=== PATIENT | male | born 1975 | race Hispanic/Latino ===

== ENCOUNTER 2018-01-08 07:29 | Outpatient (CLI) | payer BC | END 2018-01-08 07:30 | disposition home or self-care (01) | LOC: CP 07:29 | PROVIDERS: ATTEND Family Medicine | DX: R06.2 Wheezing (principal) | CPT/HCPCS: 94010; 94727 ==

== ENCOUNTER 2018-04-09 12:29 | Emergency (ER) | payer BC ==
[2018-04-09 13:03] LABS: #Basophils 0.1 thou/uL (0.0-0.2); #Eosinphils 0.2 thou/uL (0.0-0.7); #Lymphocytes 1.7 thou/uL (1.20-3.40); #Monocytes 0.5 thou/uL (0.11-0.59); %Basophils 0.9 % (0.0-1.0); %Eosinophils 2.6 % (0.0-10.0); %Lymphocytes 26.6 % (21.0-51.0); %Monocytes 7.8 % (0.0-10.0); %Neutrophils 62.1 % (42.0-75.0); Hemoglobin 15.9 g/dL (14.0-18.0); Mean Corpuscular Hemoglobin 32.4 pg (27.0-31.0); Mean Corpuscular Volume 95.1 fL (78.0-98.0); Mean Platelet Volume 8.1 fL (7.4-10.4); Platelet Count 137 thou/uL (130-400); RBC Distribution Width 12.7 % (11.5-14.5); White Blood Cell (WBC) Count 6.5 thou/uL (4.8-10.8)
[2018-04-09 13:25] LABS: ALT (SGPT) 16 U/L (8-55); AST (SGOT) 17 U/L (5-34); Albumin 4.4 g/dL (3.5-5.0); Alkaline Phosphatase 123 U/L (40-150); Anion Gap 23 mmol/L (10-20); BUN (Urea Nitrogen) 39 mg/dL (8.9-20.6); Bilirubin, Total 1.1 mg/dL (0.2-1.2); Calc. Creatinine Clearance 0 mL/min (70-130); Calcium 9.4 mg/dL (7.8-10.44); Carbon Dioxide 27 mmol/L (22-29); Chloride 95 mmol/L (98-107); Estimated GFR-MDRD 4; Globulin 4.2 g/dL (2.4-3.5); Glucose 90 mg/dL (70-105); Potassium 4.6 mmol/L (3.5-5.1); Protein, Total 8.6 g/dL (6.0-8.3); Sodium 140 mmol/L (136-145)
[2018-04-09 13:31] LABS: CKMB 0.3 ng/mL (0-6.6); Troponin I Less than 0.010 ng/mL (< 0.028)
--- NOTE | 2018-04-09 13:52 | CT ---
CT BRAIN WITHOUT CONTRAST: Date: 04/09/18 HISTORY: Hypotension, headache. Patient on dialysis. FINDINGS: Comparison made with exam of 06/06/10. Changes of left frontal craniotomy are again seen. No evidence of infarct, hemorrhage, midline shift, or abnormal extra-axial fluid collections are seen. The ventricular size is normal and the basilar c isterns are patent. No acute calvarial abnormalities are noted. Old fractures of the lamina papyracea bilaterally are again noted. IMPRESSION: No CT evidence of acute intracranial process. POS: [facility]
--- NOTE | 2018-04-09 14:01 | RAD ---
CHEST 1 VIEW: Date: 04/09/18 COMPARISON: 02/04/17. HISTORY: Dialysis patient. Hypotension. FINDINGS: Normal cardiac silhouette. Pulmonary vessels and hilum are normal. Costophrenic angles are clear. No mass. No consolidation. No pneumothorax or osseous abnormalities. IMPRESSION: No acute cardiopulmonary process. POS: [facility]
[2018-04-09] MEDS ORDERED: Meclizine HCl 25 MG TAB ONE (14:37)
[2018-04-09] MEDS ORDERED: Acetaminophen 500 MG TAB ONE (16:27)
--- NOTE | 2018-04-12 17:32 | EKG ---
Test Reason : Blood Pressure : / mmHG Vent. Rate : 077 BPM Atrial Rate : 077 BPM P-R Int : 134 ms QRS Dur : 080 ms QT Int : 368 ms P-R-T Axes : 046 001 015 degrees QTc Int : 416 ms Normal sinus rhythm Normal ECG Confirmed by MARIA LUISA MARTINEZ M.D. ([id number]), tape editor MIREYA SORENSEN ([id number]) on 04/12/2018 5:32:16 PM Referred By: Confirmed By:MARIA LUISA MARTINEZ M.D.
== END 2018-04-09 16:37 | disposition home or self-care (01) ==
LOC: ERS 12:29
DX: R42 Dizziness and giddiness (principal); N40.1 Benign prostatic hyperplasia with lower urinary tract symptoms; I10 Essential (primary) hypertension; Z99.2 Dependence on renal dialysis; Z79.899 Other long term (current) drug therapy
CPT/HCPCS: 70450; 71045; 80053; 82553; 84484; 85025; 93005; 96360; 96361

== ENCOUNTER 2018-12-17 09:49 | Inpatient (IN) | payer BC ==
[2018-12-17 10:27] LABS: Hemoglobin 15.8 g/dL (14.0-18.0); Mean Corpuscular HGB CONC 32.6 g/dL (32.0-36.0); Mean Corpuscular Hemoglobin 30.3 pg (27.0-31.0); Mean Platelet Volume 8.3 fL (7.4-10.4); Platelet Count 140 thou/uL (130-400); RBC Distribution Width 12.9 % (11.5-14.5); Red Blood Cell (RBC) Count 5.23 mill/uL (4.70-6.10); White Blood Cell (WBC) Count 14.1 thou/uL (4.8-10.8)
[2018-12-17 10:45] LABS: ALT (SGPT) 11 U/L (8-55); AST (SGOT) 10 U/L (5-34); Albumin 4.4 g/dL (3.5-5.0); Alkaline Phosphatase 95 U/L (40-150); Anion Gap 23 mmol/L (10-20); BUN (Urea Nitrogen) 43 mg/dL (8.9-20.6); Bilirubin, Total 2.5 mg/dL (0.2-1.2); Calc. Creatinine Clearance 0 mL/min (70-130); Calcium 10.2 mg/dL (7.8-10.44); Carbon Dioxide 26 mmol/L (22-29); Chloride 92 mmol/L (98-107); Estimated GFR-MDRD 4; Globulin 3.9 g/dL (2.4-3.5); Glucose 78 mg/dL (70-105); Lipase 18 U/L (8-78); Potassium 4.9 mmol/L (3.5-5.1); Protein, Total 8.3 g/dL (6.0-8.3); Sodium 136 mmol/L (136-145)
[2018-12-17 10:53] LABS: Band 3 % (5-11); Eosinophils 1 % (0-10); Lymphocytes 10 % (21-51); MDiff Complete? YES; Monocytes 4 % (0-10); Neutrophil 82 % (42-75); Platelet Morphology Comment Appears Adequate; RBC Morphology Normal
--- NOTE | 2018-12-17 11:32 | CT ---
CT ABDOMEN AND PELVIS WITH IV CONTRAST: HISTORY: Lower abdomen pain. COMPARISON: 11/28/2015 FINDINGS: Small hiatal hernia. Calcifications associated with each kidney include dystrophic cortical calcific ations and small, nonobstructing urinary tract calcifications. Polycystic kidneys is again demonstra woo. A short-segment focus of circumferential wall thickening involving the sigmoid colon with significant stranding in the adjacent fat. A small diverticulum is present at this level. Very few other diver ticula, however. No free fluid or free air. IMPRESSION: 1. Short segment sigmoid colon inflammation, as detailed above. Favored to be noncomplicated divert iculitis. Please consider endoscopic followup, after medical treatment, to exclude other underlying cause. 2. Small, nonobstructing bilateral renal calculi. 3. Small hiatal hernia. POS: [facility]
[2018-12-17] MEDS ORDERED: Morphine 4 MG/ML VIAL ONE (11:45)
[2018-12-17] MEDS ORDERED: Ondansetron PF 4 MG/2 ML Vial ONE (11:45)
[2018-12-17] MEDS ORDERED: cefTRIAXone\\ROCEPHIN 1 GM VIAL ONE (12:23)
[2018-12-17] MEDS ORDERED: Acetaminophen 650 MG Suppository PR PRN (13:41)
[2018-12-17] MEDS ORDERED: Ondansetron PF 4 MG/2 ML Vial IVP PRN (13:41)
[2018-12-17] MEDS ORDERED: Senokot S 8.6-50 MG TAB PO PRN (13:41)
[2018-12-17] MEDS ORDERED: Acetaminophen 325 MG TAB PO PRN (13:41)
[2018-12-17] MEDS ORDERED: Bisacodyl 5 MG TAB PO PRN (13:41)
[2018-12-17] MEDS ORDERED: HYDROcodone/Acetaminophen 5/325 mg Tablet PO PRN ×2 (13:41)
[2018-12-17] MEDS ORDERED: Diabetic Tussin 200 MG/10 ML UDCUP PO PRN (13:42)
[2018-12-17] MEDS ORDERED: Nitroglycerin 0.4 MG TAB (25 Tab Bottle) SL PRN (13:42)
[2018-12-17] MEDS ORDERED: Sodium Chloride 0.65% Nasal 44 ML BOT EA NARE PRN (13:42)
[2018-12-17] MEDS ORDERED: Benzonatate 100 MG CAP PO PRN (13:42)
[2018-12-17] MEDS ORDERED: hydrALAZINE 20 MG/ML VIAL SLOW IVP PRN (13:42)
[2018-12-17] MEDS ORDERED: cloNIDine 0.1 MG TAB PO PRN (13:42)
[2018-12-17] MEDS ORDERED: metroNIDAZOLE 500 MG/100 ML BAG ONE (13:52)
[2018-12-17] MEDS: metroNIDAZOLE 500 MG in Premix Bag 1 BAG IVPB SCH ×3 (13:58→20:19)
--- NOTE | 2018-12-17 14:20 | HP ---
PRIMARY CARE PHYSICIAN: Katt Ca MD PRIMARY WOOD VENEER TAPER: Shemar Samuels MD CHIEF COMPLAINT: Abdominal pain. HISTORY OF PRESENTING ILLNESS: Mr. Morejon is a 43-year-old male, who presented to the ER with above-mentioned complaints. History is mainly obtained by the patient himself. Electronic medical records have been reviewed. Case has been discussed with admitting ER physician, Dr. Mayberry. Mr. Morejon reports that he normally dialyzes Saturday, , and Saturdays, and is compliant with his dialysis. Dr. Zaragoza is his geospatial systems integrator. He started to have this abdominal pain, initially vague, since Saturday that was about 4 days ago. Then, it became severe and started to localize in the right lower quadrant. It is associated with nausea, vomiting, and low-grade fever since yesterday morning. He also reports some loose stools. He denies any blood in his stools. He denies any recent travel. He denies any new foods. He has not eaten out recently. He denies any chest pain or shortness of breath. Upon presentation to the emergency room, he was hemodynamically stable, but had a low-grade fever at 100.8. Blood pressure was 115/66. He has slight tachycardia with a heart rate of 103. His initial workup included blood work, which showed leukocytosis with WBCs of 14.1 with 82% neutrophils and 3% bands. BUN 43, creatinine 13.34. Lactic acid was normal. He underwent a CT scan of the abdomen and pelvis in the ER today with IV contrast, which showed short-segment sigmoid colon inflammation likely noncomplicated diverticulitis. He received Rocephin in the emergency room along with some antiemetics and pain medications and is now being admitted to medical service for acute diverticulitis. PAST MEDICAL HISTORY: 1. End-stage renal disease, on hemodialysis Saturday, , and Saturday. The patient is compliant. 2. History of BPH, which is questionable, but listed in the EMR. 3. Hypertension. PAST SURGICAL HISTORY: 1. Dialysis shunt of right arm. 2. Surgical history of prostatectomy. 3. History of some sort of head surgery. SOCIAL HISTORY: He is and lives with his family. No history of drug, tobacco, or alcohol abuse. FAMILY HISTORY: Diabetes in his aunts and uncles, but he denies any history of heart attack or stroke running in his family. No cancers in his family. ALLERGIES: PENICILLIN. HOME MEDICATIONS: As listed in the emergency room record, 1. Sensipar 60 mg. 2. Vitamin D3 daily. 3. Fosrenol daily. These further need to be corroborated as the list is seemingly incomplete. REVIEW OF SYSTEMS: A 14-point review of system is done and it is negative except for those mentioned in the history and physical. LABORATORY EXAMINATION: CBC as stated above in the HPI shows leukocytosis with left shift. Serum chemistry showed chloride 92, anion gap 23, BUN 43, creatinine 13.34. Lipase is normal. Lactic acid is normal. Total bilirubin 2.5. CT scan of the abdomen and pelvis with IV contrast showed sigmoid diverticulitis. A 12-lead EKG by my review shows normal sinus rhythm at 96 beats per minute without any ectopy. ST segments and T-waves are normal. PHYSICAL EXAMINATION: VITAL SIGNS: Upon presentation, blood pressure 115/66, respirations 18, temperature 100.8, saturating 95% on room air, pulse of 103. GENERAL: No acute distress. Lying comfortably in bed. Awake, alert, and oriented x3. Family is at bedside. HEENT: Mucous membrane is slightly dry. No oropharyngeal exudate or erythema. Head is normocephalic and atraumatic. Pupils are equal and reactive to light and accommodation. Extraocular movement intact. NECK: Supple without any lymphadenopathy, JVD, or bruit. CHEST: Clear to auscultation without any wheezing, rales, or rhonchi. Rate, rhythm is regular without any murmurs, rubs, or gallops. ABDOMEN: Slightly distended and tender to palpation in the suprapubic region as well as right lower quadrant. Bowel sounds are heard easily. No rebound, guarding, or rigidity. EXTREMITIES: Dialysis fistula to the right upper arm with normal thrill. No lower extremity swelling, edema, or erythema. NEUROLOGICAL: Nonfocal. SKIN: Free of any rashes or bruises. Feels warm and dry to touch. PSYCHIATRIC: Normal affect. IMPRESSION AND PLAN: 1. Acute diverticulitis. The patient will be admitted to the hospital and will be treated with broad-spectrum IV antibiotics for GI sources, namely metronidazole and Rocephin. Blood cultures have been obtained in the emergency room and we will follow the results. At this time, the patient does not appear to be septic. Pain medications will be initiated on a p.r.n. basis and we will keep the patient n.p.o. for now and start him on gentle IV fluid hydration. He also has gotten some IV contrast and will undergo dialysis tomorrow. 2. Abdominal pain. This is secondary to acute diverticulitis. Pain control, IV antibiotic and IV fluids as above. 3. End-stage renal disease. We will consult his geospatial systems integrator, Dr. Zaragoza, for maintenance hemodialysis in the hospital. Restart his renal medications once confirmed. Recheck renal function in the morning along with electrolytes. 4. History of hypertension. The patient's home medications have not been reconciled. We will restart his home medications once confirmed and meanwhile use p.r.n. antihypertensives. 5. Deep venous thrombosis and gastrointestinal prophylaxis will be added. 6. Disposition: Mr. Morejon is currently being admitted to the hospital with acute sigmoid diverticulitis. He is hemodynamically stable and will be admitted to medical floor. Estimated length of stay at this time is at least 2 to 3 midnights. Job ID: [id number]
[2018-12-17] MEDS ORDERED: ISOVUE-370 76%-LOCM 1 ML ONE (14:39)
[2018-12-17 17:25] VITALS: BMI 30.7
[2018-12-17] MEDS: Morphine 4 MG/ML VIAL SLOW IVP PRN (18:16)
[2018-12-17] MEDS: Dextrose 5 %-0.45 % NaCl 1,000 ML IV SCH (18:26)
[2018-12-17] MEDS: Heparin 5,000 UNITS/ML VIAL SC SCH (20:28)
[2018-12-17] MEDS ORDERED: Prevnar 13-Val Conj/PF 0.5 ML SYRINGE IM ONE (21:00)
[2018-12-17] MEDS ORDERED: Famotidine/PF 20 mg/2ml Vial SLOW IVP SCH (21:00)
[2018-12-18] MEDS: Morphine 4 MG/ML VIAL SLOW IVP PRN ×3 (01:08→14:53)
[2018-12-18] MEDS: metroNIDAZOLE 500 MG in Premix Bag 1 BAG IVPB SCH ×3 (05:00→21:33)
[2018-12-18] MEDS: Dextrose 5 %-0.45 % NaCl 1,000 ML IV SCH ×2 (05:00→17:03)
[2018-12-18 06:08] LABS: Anion Gap 20 mmol/L (10-20); BUN (Urea Nitrogen) 57 mg/dL (8.9-20.6); Calc. Creatinine Clearance 8 mL/min (70-130); Calcium 9.2 mg/dL (7.8-10.44); Carbon Dioxide 25 mmol/L (22-29); Chloride 94 mmol/L (98-107); Estimated GFR-MDRD 4; Glucose 88 mg/dL (70-105); Potassium 4.8 mmol/L (3.5-5.1); Sodium 134 mmol/L (136-145)
[2018-12-18 06:43] LABS: #Basophils 0.1 thou/uL (0.0-0.2); #Eosinphils 0.1 thou/uL (0.0-0.7); #Monocytes 0.7 thou/uL (0.11-0.59); #Neutrophils 7.1 thou/uL (1.40-6.50); %Basophils 0.6 % (0.0-1.0); %Eosinophils 1.5 % (0.0-10.0); %Lymphocytes 10.8 % (21.0-51.0); %Monocytes 7.9 % (0.0-10.0); %Neutrophils 79.2 % (42.0-75.0); Hemoglobin 14.1 g/dL (14.0-18.0); Mean Corpuscular HGB CONC 32.6 g/dL (32.0-36.0); Mean Corpuscular Hemoglobin 30.3 pg (27.0-31.0); Mean Corpuscular Volume 92.9 fL (78.0-98.0); Mean Platelet Volume 8.7 fL (7.4-10.4); Platelet Count 117 thou/uL (130-400); Platelet Morphology Comment Appears Decreased; RBC Distribution Width 12.8 % (11.5-14.5); RBC Morphology Normal; Red Blood Cell (RBC) Count 4.64 mill/uL (4.70-6.10)
[2018-12-18] MEDS: Heparin 5,000 UNITS/ML VIAL SC SCH ×2 (08:22→21:36)
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
[2018-12-18] MEDS: cefTRIAXone\\ROCEPHIN 1 GM in Sodium Chloride 0.9% 100 ML IVPB SCH (14:47)
[2018-12-18] MEDS: Famotidine 20 MG TAB PO SCH (21:33)
--- NOTE | 2018-12-18 22:10 | PDOC.PN ---
- Subjective Encounter Start Date: 12/18/18 Encounter Start Time: 14:45 Patient seen and examined for Sepsis/Diverticulitis. Abd pain improving. No N/ V. No other complaints. No overnight events - Objective MAR Reviewed: Yes Vital Signs & Weight: Vital Signs (12 hours) Temp Pulse Resp BP BP Pulse Ox 12/18/18 21:52 96 12/18/18 21:07 98.4 F 80 18 108/65 95 12/18/18 15:01 99.2 F 109 H 18 102/69 96 Weight Weight 185 lb I&O: 12/17/18 12/18/18 12/19/18 06:59 06:59 06:59 Intake Total 825 Balance 825 Result Diagrams: 12/19/18 06:33 12/19/18 06:33 Radiology Reviewed by me: Yes (CT Abd - Diverticulitis) Phys Exam - Physical Examination Constitutional: NAD Respiratory: no wheezing, no rhonchi Cardiovascular: RRR, no rub Gastrointestinal: soft, non-tender, positive bowel sounds Musculoskeletal: no edema Neurological: moves all 4 limbs Dx/Plan - Plan DVT proph w/SCDs IMPRESSION: Sepsis due to acute Diverticulitis HTN ESRD on HD Obesity BMI 30.8 BPH Abn LFTs B/L nonobstructing renal calculi Hiatal hernia PLAN: Cont Ceftriaxone/Flagyl Start clear liqd diet Reduce IVF to KVO Dialysis per Nephrology AM labs Review of Systems - Medications/Allergies Allergies/Adverse Reactions: Allergies Allergy/AdvReac Type Severity Reaction Status Date / Time Penicillins Allergy Severe ITCHING, Verified 04/16/17 16:47 HIVES Medications: Current Medications Acetaminophen (Tylenol) 650 mg ID Q4H PRN PRN Reason: Headache/Fever/Mild Pain (1-3) Acetaminophen (Tylenol) 650 mg PO Q4H PRN PRN Reason: Headache/Fever/Mild Pain (1-3) Last Admin: 12/18/18 17:38 Dose: 650 mg Hydrocodone Bitart/Acetaminophen ([place] 5/325) 1 tab PO Q4H PRN PRN Reason: Moderate Pain (4-6) Hydrocodone Bitart/Acetaminophen ([place] 5/325) 2 tab PO Q4H PRN PRN Reason: Severe Pain (7-10) Benzonatate (Tessalon) 100 mg PO Q6H PRN PRN Reason: Cough Bisacodyl (Dulcolax) 10 mg PO DAILYPRN PRN PRN Reason: Constipation Clonidine (Catapres) 0.1 mg PO Q4H PRN PRN Reason: SBP > ____ Famotidine (Pepcid) 20 mg PO 2100 [facility] Last Admin: 12/18/18 21:33 Dose: 20 mg Guaifenesin (Robitussin Sf) 200 mg PO Q4H PRN PRN Reason: Cough Heparin Sodium (Porcine) (Heparin) 5,000 units SC BID [facility] Last Admin: 12/18/18 21:36 Dose: 5,000 units Hydralazine HCl (Apresoline) 10 mg SLOW IVP Q4H PRN PRN Reason: SBP > 180 and HR < 70 Ceftriaxone Sodium 1 gm/ (Sodium Chloride) 100 mls @ 200 mls/hr IVPB 1200 [facility] Last Admin: 12/18/18 14:47 Dose: 100 mls Metronidazole 500 mg/ Device 100 mls @ 100 mls/hr IVPB Q8HR [facility] Last Admin: 12/18/18 21:33 Dose: 100 mls Dextrose/Sodium Chloride (D5 1/2 Ns) 1,000 mls @ 30 mls/hr IV .Q24H [facility] Last Admin: 12/18/18 17:03 Dose: Not Given Miscellaneous Medication (Pharmacy To Dose) 1 each IVPB PRN PRN PRN Reason: Pharmacy to dose Morphine Sulfate (Morphine) 2 mg SLOW IVP Q4H PRN PRN Reason: severe pain Last Admin: 12/18/18 14:53 Dose: 2 mg Nitroglycerin (Nitrostat) 0.4 mg SL Q5MIN PRN PRN Reason: Chest Pain Ondansetron HCl (Zofran) 4 mg IVP Q6H PRN PRN Reason: Nausea/Vomiting Saccharomyces Boulardii (Florastor) 250 mg PO DAILY [facility] Senna/Docusate Sodium (Senokot S) 2 tab PO BID PRN PRN Reason: Constipation Sodium Chloride ([place] Nasal [place] 0.65%) 0 ml EA NARE QIDPRN PRN PRN Reason: Nasal Congestion
[2018-12-19] MEDS: metroNIDAZOLE 500 MG in Premix Bag 1 BAG IVPB SCH ×3 (05:14→21:10)
[2018-12-19 07:05] LABS: Hemoglobin 14.1 g/dL (14.0-18.0); Mean Corpuscular HGB CONC 33.3 g/dL (32.0-36.0); Mean Corpuscular Hemoglobin 30.6 pg (27.0-31.0); Mean Corpuscular Volume 92.1 fL (78.0-98.0); Mean Platelet Volume 8.7 fL (7.4-10.4); Platelet Count 137 thou/uL (130-400); RBC Distribution Width 12.9 % (11.5-14.5); Red Blood Cell (RBC) Count 4.59 mill/uL (4.70-6.10); White Blood Cell (WBC) Count 8.7 thou/uL (4.8-10.8)
[2018-12-19 07:16] LABS: Anion Gap 18 mmol/L (10-20); BUN (Urea Nitrogen) 31 mg/dL (8.9-20.6); Calc. Creatinine Clearance 9 mL/min (70-130); Calcium 9.4 mg/dL (7.8-10.44); Carbon Dioxide 26 mmol/L (22-29); Chloride 97 mmol/L (98-107); Estimated GFR-MDRD 5; Glucose 98 mg/dL (70-105); Sodium 137 mmol/L (136-145)
[2018-12-19 07:34] LABS: Band 2 % (5-11); Eosinophils 3 % (0-10); Lymphocytes 15 % (21-51); MDiff Complete? YES; Monocytes 5 % (0-10); Neutrophil 71 % (42-75); RBC Morphology Normal; Reactive Lymphocytes 4 % (0-10)
[2018-12-19] MEDS: Saccharomyces boulardii 250 MG CAP PO SCH (08:34)
[2018-12-19 08:35] LABS: ALT (SGPT) 8 U/L (8-55); AST (SGOT) 12 U/L (5-34); Albumin 3.9 g/dL (3.5-5.0); Alkaline Phosphatase 78 U/L (40-150); Bilirubin, Direct 0.3 mg/dL (0.1-0.3); Bilirubin, Total 0.8 mg/dL (0.2-1.2); Protein, Total 7.5 g/dL (6.0-8.3)
[2018-12-19] MEDS: cefTRIAXone\\ROCEPHIN 1 GM in Sodium Chloride 0.9% 100 ML IVPB SCH (11:55)
[2018-12-19] MEDS: Dextrose 5 %-0.45 % NaCl 1,000 ML IV SCH (14:39)
--- NOTE | 2018-12-19 17:21 | PRG ---
DATE OF SERVICE: 12/19/2018 SUBJECTIVE: Mr. Dickinson is a 43-year-old male with ESRD and currently admitted for abdominal pain. He was diagnosed to have diverticulitis. He is currently receiving IV antibiotics. No other complaints. He still has some abdominal discomfort. Denies any chest pain or shortness of breath. OBJECTIVE: VITAL SIGNS: Blood pressure 145/91, heart rate 86, respiratory rate 18, temperature 99.6, and pulse ox 94%. GENERAL: Awake, alert, ambulatory, comfortable, not in distress. SKIN: Adequate turgor. HEENT: He has a pinkish conjunctivae. Anicteric sclerae. No neck mass. No carotid bruits. No JVD. CHEST: No deformities. LUNGS: Clear breath sounds. No wheezing. No crackles. HEART: Normal sinus rhythm. No murmur. No gallops or rubs. ABDOMEN: Globular, soft, nontender. No masses. EXTREMITIES: No edema. No deformities. MEDICATIONS: Medications of December 19, 2018 were reviewed. LABORATORY DATA: Laboratories of December 19, 2018, white count 8.7, hemoglobin 14.1, sodium 137, potassium 4, chloride 97, carbon dioxide 26, BUN 31, creatinine 12.04, calcium 9.4. LFTs normal. ASSESSMENT AND PLAN: 1. Acute diverticulitis-currently on IV antibiotics. Supportive care. 2. End-stage renal disease, stable. We will continue current Saturday, , and Saturday dialysis regimen. Again, fluid removal only as tolerated by the patient. Overall, prognosis remains guarded. Recheck basic metabolic panel and CBC in a.m. 3. Job ID: [id number]
[2018-12-19] MEDS: Morphine 4 MG/ML VIAL SLOW IVP PRN (17:50)
[2018-12-19] MEDS: Famotidine 20 MG TAB PO SCH (21:10)
[2018-12-19] MEDS: Docusate 100 MG CAP PO SCH (21:10)
--- NOTE | 2018-12-19 22:46 | PDOC.PN ---
- Subjective Encounter Start Date: 12/19/18 Encounter Start Time: 11:00 Patient seen and examined for Sepsis/Diverticulitis. Abd pain improving. No N/ V. Tolerating clear liqd diet. No other complaints. No overnight events - Objective MAR Reviewed: Yes Vital Signs & Weight: Vital Signs (12 hours) Temp Pulse Resp BP BP Pulse Ox 12/19/18 20:00 99.2 F 80 20 118/75 97 12/19/18 11:32 99.6 F 86 18 145/91 H 94 L Weight Weight 185 lb I&O: 12/18/18 12/19/18 12/20/18 06:59 06:59 06:59 Intake Total 825 780 Balance 825 780 Result Diagrams: 12/20/18 06:26 12/20/18 06:26 Phys Exam - Physical Examination Constitutional: NAD Respiratory: no wheezing, no rhonchi Cardiovascular: RRR, no rub Gastrointestinal: soft, non-tender, positive bowel sounds Musculoskeletal: no edema Neurological: moves all 4 limbs Dx/Plan - Plan DVT proph w/SCDs IMPRESSION: Sepsis due to acute Diverticulitis HTN ESRD on HD Obesity BMI 30.8 BPH Thrombocytopenia Abn LFTs B/L nonobstructing renal calculi Hiatal hernia PLAN: Cont IVCeftriaxone/Flagyl Advance diet to full liqd diet Dialysis per Nephrology Cont other meds as below Review of Systems - Review of Systems Respiratory: negative: Cough, Dry, Shortness of Breath, Hemoptysis, SOB with Excertion, Pleuritic Pain, Sputum, Wheezing Cardiovascular: negative: chest pain, palpitations, orthopnea, paroxysmal nocturnal dyspnea, edema, light headedness, other Gastrointestinal: negative: Nausea, Vomiting, Abdominal Pain, Diarrhea, Constipation, Melena, Hematochezia, Other - Medications/Allergies Allergies/Adverse Reactions: Allergies Allergy/AdvReac Type Severity Reaction Status Date / Time Penicillins Allergy Severe ITCHING, Verified 04/16/17 16:47 HIVES Medications: Current Medications Acetaminophen (Tylenol) 650 mg [place] Q4H PRN PRN Reason: Headache/Fever/Mild Pain (1-3) Acetaminophen (Tylenol) 650 mg PO Q4H PRN PRN Reason: Headache/Fever/Mild Pain (1-3) Last Admin: 12/18/18 17:38 Dose: 650 mg Hydrocodone Bitart/Acetaminophen ([place] 5/325) 1 tab PO Q4H PRN PRN Reason: Moderate Pain (4-6) Hydrocodone Bitart/Acetaminophen ([place] 5/325) 2 tab PO Q4H PRN PRN Reason: Severe Pain (7-10) Benzonatate (Tessalon) 100 mg PO Q6H PRN PRN Reason: Cough Bisacodyl (Dulcolax) 10 mg PO DAILYPRN PRN PRN Reason: Constipation Clonidine (Catapres) 0.1 mg PO Q4H PRN PRN Reason: SBP > ____ Docusate Sodium (Colace) 100 mg PO BID [facility] Last Admin: 12/19/18 21:10 Dose: 100 mg Famotidine (Pepcid) 20 mg PO 2100 [facility] Last Admin: 12/19/18 21:10 Dose: 20 mg Guaifenesin (Robitussin Sf) 200 mg PO Q4H PRN PRN Reason: Cough Hydralazine HCl (Apresoline) 10 mg SLOW IVP Q4H PRN PRN Reason: SBP > 180 and HR < 70 Ceftriaxone Sodium 1 gm/ (Sodium Chloride) 100 mls @ 200 mls/hr IVPB 1200 [facility] Last Admin: 12/19/18 11:55 Dose: 100 mls Metronidazole 500 mg/ Device 100 mls @ 100 mls/hr IVPB Q8HR [facility] Last Admin: 12/19/18 21:10 Dose: 100 mls Dextrose/Sodium Chloride (D5 1/2 Ns) 1,000 mls @ 30 mls/hr IV .Q24H [facility] Last Admin: 12/19/18 14:39 Dose: Not Given Miscellaneous Medication (Pharmacy To Dose) 1 each IVPB PRN PRN PRN Reason: Pharmacy to dose Morphine Sulfate (Morphine) 2 mg SLOW IVP Q4H PRN PRN Reason: severe pain Last Admin: 12/19/18 17:50 Dose: 2 mg Nitroglycerin (Nitrostat) 0.4 mg SL Q5MIN PRN PRN Reason: Chest Pain Ondansetron HCl (Zofran) 4 mg IVP Q6H PRN PRN Reason: Nausea/Vomiting Saccharomyces Boulardii (Florastor) 250 mg PO DAILY [facility] Last Admin: 12/19/18 08:34 Dose: 250 mg Senna/Docusate Sodium (Senokot S) 2 tab PO BID PRN PRN Reason: Constipation Sodium Chloride ([place] Nasal [place] 0.65%) 0 ml EA NARE QIDPRN PRN PRN Reason: Nasal Congestion
[2018-12-20] MEDS: metroNIDAZOLE 500 MG in Premix Bag 1 BAG IVPB SCH ×3 (05:46→21:21)
[2018-12-20 06:57] LABS: Anion Gap 19 mmol/L (10-20); BUN (Urea Nitrogen) 43 mg/dL (8.9-20.6); Calc. Creatinine Clearance 7 mL/min (70-130); Calcium 9.2 mg/dL (7.8-10.44); Carbon Dioxide 24 mmol/L (22-29); Chloride 98 mmol/L (98-107); Estimated GFR-MDRD 3; Glucose 82 mg/dL (70-105); Potassium 4.2 mmol/L (3.5-5.1); Sodium 137 mmol/L (136-145)
[2018-12-20 07:32] LABS: #Eosinphils 0.2 thou/uL (0.0-0.7); #Monocytes 0.6 thou/uL (0.11-0.59); #Neutrophils 6.4 thou/uL (1.40-6.50); %Basophils 0.4 % (0.0-1.0); %Eosinophils 2.6 % (0.0-10.0); %Lymphocytes 12.4 % (21.0-51.0); %Monocytes 6.7 % (0.0-10.0); Hemoglobin 13.4 g/dL (14.0-18.0); Large Platelets SLIGHT; MDiff Complete? YES; Mean Corpuscular HGB CONC 33.8 g/dL (32.0-36.0); Mean Corpuscular Hemoglobin 31.2 pg (27.0-31.0); Mean Corpuscular Volume 92.2 fL (78.0-98.0); Mean Platelet Volume 8.2 fL (7.4-10.4); Platelet Count 118 thou/uL (130-400); Platelet Morphology Comment Appears Decreased; RBC Distribution Width 12.7 % (11.5-14.5); Red Blood Cell (RBC) Count 4.29 mill/uL (4.70-6.10); White Blood Cell (WBC) Count 8.2 thou/uL (4.8-10.8)
[2018-12-20] MEDS ORDERED: cloNIDine 0.1 MG TAB PO PRN (08:07)
[2018-12-20] MEDS: Docusate 100 MG CAP PO SCH ×2 (09:58→20:28)
[2018-12-20] MEDS: Saccharomyces boulardii 250 MG CAP PO SCH (09:59)
--- NOTE | 2018-12-20 11:55 | PRG ---
DATE OF SERVICE: 12/20/2018 SUBJECTIVE: Mr. Morejon is a 43-year-old male with ESRD, currently on maintenance hemodialysis. He is scheduled for hemodialysis this morning. The plan is to do dialysis with him. He was initially admitted for diverticulitis, currently on IV antibiotics. His abdominal pain is better. He denies any chest pain or shortness of breath. OBJECTIVE: VITAL SIGNS: Blood pressure 133/65, heart rate 101, temperature 100.2, respiratory rate 17, and pulse ox 96%. GENERAL: The patient is awake, alert, and comfortable, not in overt distress. SKIN: Adequate turgor. HEENT: He has pinkish conjunctivae. Anicteric sclerae. NECK: No neck mass. No carotid bruits. No JVD. CHEST: No deformities. LUNGS: Clear breath sounds. No wheezing. No crackles. HEART: Normal sinus rhythm. No murmur. No gallops. No rubs. ABDOMEN: Globular, soft, and nontender. No masses. EXTREMITIES: No edema. No deformities. MEDICATIONS: Medications of December 20, 2018, reviewed. LABORATORY DATA: Laboratories of December 20, 2018; white count 8.2, hemoglobin 13.4. Sodium 137, potassium 4.2, chloride 98, carbon dioxide 24, BUN 43, creatinine 15.48, glucose 82, and calcium 9.2. ASSESSMENT AND PLAN: 1. End-stage renal disease, stable. We will continue current hemodialysis regimen. Scheduled for Saturday, , and Saturday dialysis. Again, fluid removal as tolerated. 2. Acute diverticulitis, currently on Flagyl and ceftriaxone. Clinically improving. However, the patient still has a low-grade fever. Continue current management. Continue IV antibiotics. Review of blood culture was negative today. 3. We will recheck CBC in a.m. Job ID: [id number]
[2018-12-20] MEDS: cefTRIAXone\\ROCEPHIN 1 GM in Sodium Chloride 0.9% 100 ML IVPB SCH (17:53)
[2018-12-20] MEDS: Dextrose 5 %-0.45 % NaCl 1,000 ML IV SCH ×2 (17:56→20:29)
[2018-12-20] MEDS: Famotidine 20 MG TAB PO SCH (20:28)
--- NOTE | 2018-12-20 22:24 | PDOC.PN ---
- Subjective Encounter Start Date: 12/20/18 Encounter Start Time: 19:00 Patient seen and examined for Acute Diverticulitis. Feels better. LLQ abd pain improving. No N/V. Tolerating full liqd diet. No new complaints. No overnight events - Objective MAR Reviewed: Yes Vital Signs & Weight: Vital Signs (12 hours) Temp Pulse Resp BP Pulse Ox 12/20/18 16:41 98.8 F 90 18 118/81 98 Weight Weight 185 lb I&O: 12/19/18 12/20/18 12/21/18 06:59 06:59 06:59 Intake Total 780 Balance 780 Result Diagrams: 12/21/18 05:47 12/20/18 06:26 Radiology Reviewed by me: Yes (CT abd - reviewed) Phys Exam - Physical Examination Constitutional: NAD Cardiovascular: RRR, no rub Gastrointestinal: soft, positive bowel sounds minimal LLQ and Suprapubic tenderness Musculoskeletal: no edema Neurological: moves all 4 limbs Dx/Plan - Plan DVT proph w/SCDs IMPRESSION: Sepsis due to acute Diverticulitis HTN ESRD on HD Obesity BMI 30.8 BPH Thrombocytopenia Abn LFTs B/L nonobstructing renal calculi Hiatal hernia PLAN: Consult GI due to persistent low grade fever Cont IV Ceftriaxone/Flagyl Cont full liqd diet AM labs Dialysis per Nephrology Cont other meds as below Review of Systems - Review of Systems Respiratory: negative: Cough, Dry, Shortness of Breath, Hemoptysis, SOB with Excertion, Pleuritic Pain, Sputum, Wheezing Cardiovascular: negative: chest pain, palpitations, orthopnea, paroxysmal nocturnal dyspnea, edema, light headedness, other Gastrointestinal: Abdominal Pain (LLQ). negative: Nausea, Vomiting, Diarrhea, Constipation, Melena, Hematochezia, Other - Medications/Allergies Allergies/Adverse Reactions: Allergies Allergy/AdvReac Type Severity Reaction Status Date / Time Penicillins Allergy Severe ITCHING, Verified 04/16/17 16:47 HIVES Medications: Current Medications Acetaminophen (Tylenol) 650 mg [place] Q4H PRN PRN Reason: Headache/Fever/Mild Pain (1-3) Acetaminophen (Tylenol) 650 mg PO Q4H PRN PRN Reason: Headache/Fever/Mild Pain (1-3) Last Admin: 12/18/18 17:38 Dose: 650 mg Hydrocodone Bitart/Acetaminophen ([place] 5/325) 1 tab PO Q4H PRN PRN Reason: Moderate Pain (4-6) Hydrocodone Bitart/Acetaminophen ([place] 5/325) 2 tab PO Q4H PRN PRN Reason: Severe Pain (7-10) Benzonatate (Tessalon) 100 mg PO Q6H PRN PRN Reason: Cough Bisacodyl (Dulcolax) 10 mg PO DAILYPRN PRN PRN Reason: Constipation Clonidine (Catapres) 0.1 mg PO Q4H PRN PRN Reason: Systolic BP > 180 Docusate Sodium (Colace) 100 mg PO BID [facility] Last Admin: 12/20/18 20:28 Dose: 100 mg Famotidine (Pepcid) 20 mg PO 2100 [facility] Last Admin: 12/20/18 20:28 Dose: 20 mg Guaifenesin (Robitussin Sf) 200 mg PO Q4H PRN PRN Reason: Cough Hydralazine HCl (Apresoline) 10 mg SLOW IVP Q4H PRN PRN Reason: SBP > 180 and HR < 70 Ceftriaxone Sodium 1 gm/ (Sodium Chloride) 100 mls @ 200 mls/hr IVPB 1200 [facility] Last Admin: 12/20/18 17:53 Dose: 100 mls Metronidazole 500 mg/ Device 100 mls @ 100 mls/hr IVPB Q8HR [facility] Last Admin: 12/20/18 21:21 Dose: 100 mls Dextrose/Sodium Chloride (D5 1/2 Ns) 1,000 mls @ 30 mls/hr IV .Q24H [facility] Last Admin: 12/20/18 20:29 Dose: 1,000 mls Miscellaneous Medication (Pharmacy To Dose) 1 each IVPB PRN PRN PRN Reason: Pharmacy to dose Morphine Sulfate (Morphine) 2 mg SLOW IVP Q4H PRN PRN Reason: severe pain Last Admin: 12/19/18 17:50 Dose: 2 mg Nitroglycerin (Nitrostat) 0.4 mg SL Q5MIN PRN PRN Reason: Chest Pain Ondansetron HCl (Zofran) 4 mg IVP Q6H PRN PRN Reason: Nausea/Vomiting Saccharomyces Boulardii (Florastor) 250 mg PO DAILY [facility] Last Admin: 12/20/18 09:59 Dose: 250 mg Senna/Docusate Sodium (Senokot S) 2 tab PO BID PRN PRN Reason: Constipation Sodium Chloride ([place] Nasal [place] 0.65%) 0 ml EA NARE QIDPRN PRN PRN Reason: Nasal Congestion
[2018-12-21] MEDS: metroNIDAZOLE 500 MG in Premix Bag 1 BAG IVPB SCH ×3 (05:25→20:38)
[2018-12-21 06:35] LABS: #Eosinphils 0.2 thou/uL (0.0-0.7); #Lymphocytes 1.7 thou/uL (1.20-3.40); #Monocytes 0.8 thou/uL (0.11-0.59); #Neutrophils 6.8 thou/uL (1.40-6.50); %Basophils 0.3 % (0.0-1.0); %Eosinophils 2.5 % (0.0-10.0); %Lymphocytes 17.6 % (21.0-51.0); %Monocytes 8.3 % (0.0-10.0); %Neutrophils 71.4 % (42.0-75.0); Hemoglobin 14.1 g/dL (14.0-18.0); Mean Corpuscular HGB CONC 33.6 g/dL (32.0-36.0); Mean Corpuscular Hemoglobin 31.2 pg (27.0-31.0); Mean Corpuscular Volume 92.8 fL (78.0-98.0); Mean Platelet Volume 8.5 fL (7.4-10.4); Platelet Count 153 thou/uL (130-400); RBC Distribution Width 12.8 % (11.5-14.5); Red Blood Cell (RBC) Count 4.51 mill/uL (4.70-6.10); White Blood Cell (WBC) Count 9.5 thou/uL (4.8-10.8)
[2018-12-21] MEDS: Saccharomyces boulardii 250 MG CAP PO SCH (08:12)
[2018-12-21] MEDS: Docusate 100 MG CAP PO SCH (08:12)
[2018-12-21] MEDS ORDERED: Polyethylene Glycol 3350 17 GM Packet PO SCH (12:15)
[2018-12-21] MEDS: cefTRIAXone\\ROCEPHIN 1 GM in Sodium Chloride 0.9% 100 ML IVPB SCH (12:37)
[2018-12-21] MEDS: Ciprofloxacin Lactate/D5W 200 MG in Premix Bag 1 BAG IVPB SCH (15:50)
--- NOTE | 2018-12-21 17:07 | PRG ---
DATE OF SERVICE: 12/21/2018 OBJECTIVE: Mr. Jean-Pierre Dickinson is a 43-year-old male with ESRD, admitted for acute diverticulitis. Clinically improving. However, this morning, he still say he has occasional pain in the hypogastric area, but it has some mild tenderness on deep palpation. Please note, the initial CT scan of December 17, 2018, showed none complicated sigmoid colon inflammation. If the pain is persistent, consider GI workup for possible colonoscopy. No other complaints. No chest pain or shortness of breath. He is tolerating his dialysis. He underwent dialysis yesterday without any difficulty. OBJECTIVE: VITAL SIGNS: Blood pressure 113/72, heart rate 78, respiratory rate 18, temperature 99.3, and pulse ox 96. GENERAL: Awake, alert, comfortable, not in overt distress. SKIN: Adequate turgor. HEENT: He has a pinkish conjunctivae. Anicteric sclerae. NECK: No neck mass. No carotid bruits. No JVD. CHEST: No deformities. LUNGS: Clear breath sounds. HEART: Normal sinus rhythm. No murmur. No gallops. No rubs. ABDOMEN: Globular, soft, and nontender. No masses. EXTREMITIES: No edema. No deformities. MEDICATIONS: Medications of December 21, 2018, reviewed. LABORATORY DATA: Laboratories of December 20, 2018; sodium 137, potassium 4.2, chloride 98, carbon dioxide 24, BUN 43, creatinine 15.48, glucose was 82, and calcium 9.2. On December 21, 2018; white count 5.5, hemoglobin 14.1. ASSESSMENT AND PLAN: 1. Acute diverticulitis. Currently, IV antibiotics. Clinically improving, but he still has some mild hypogastric pain. If persistent, consider GI consult for possible colonoscopy. 2. End-stage renal disease, stable, tolerating current hemodialysis regimen. Fluid removal was tolerated by the patient. No changes will be made with the current 3 times a week hemodialysis with this patient. Overall, agree with current management. Job ID: [id number]
[2018-12-21] MEDS: Famotidine 20 MG TAB PO SCH (20:37)
--- NOTE | 2018-12-21 22:49 | PDOC.PN ---
- Subjective Encounter Start Date: 12/21/18 Encounter Start Time: 14:00 Patient seen and examined for Acute Diverticulitis. Still has intermittent Abd pain. No new complaints. No overnight events - Objective MAR Reviewed: Yes Vital Signs & Weight: Vital Signs (12 hours) Temp Pulse Resp BP Pulse Ox 12/21/18 19:46 99.6 F 84 18 106/71 95 12/21/18 18:01 98.9 F 12/21/18 11:50 99.4 F Weight Weight 185 lb Result Diagrams: 12/22/18 05:36 12/22/18 05:36 Phys Exam - Physical Examination Constitutional: NAD Respiratory: no wheezing, no rhonchi Cardiovascular: RRR, no rub Gastrointestinal: soft, positive bowel sounds LLQ tenderness, No rebound Musculoskeletal: no edema Neurological: moves all 4 limbs Dx/Plan - Plan DVT proph w/SCDs IMPRESSION: Sepsis due to acute Diverticulitis HTN ESRD on HD Obesity BMI 30.8 BPH Thrombocytopenia Abn LFTs B/L nonobstructing renal calculi Hiatal hernia PLAN: Change IV Ceftriaxone to Cipro Cont IV Flagyl Cont full liqd diet CT Abd in AM to r/o abscess - I confirmed with Dr Nik GANN labs Dialysis per Nephrology Cont other meds as below Review of Systems - Medications/Allergies Allergies/Adverse Reactions: Allergies Allergy/AdvReac Type Severity Reaction Status Date / Time Penicillins Allergy Severe ITCHING, Verified 04/16/17 16:47 HIVES Medications: Current Medications Acetaminophen (Tylenol) 650 mg [place] Q4H PRN PRN Reason: Headache/Fever/Mild Pain (1-3) Acetaminophen (Tylenol) 650 mg PO Q4H PRN PRN Reason: Headache/Fever/Mild Pain (1-3) Last Admin: 12/18/18 17:38 Dose: 650 mg Hydrocodone Bitart/Acetaminophen ([place] 5/325) 1 tab PO Q4H PRN PRN Reason: Moderate Pain (4-6) Hydrocodone Bitart/Acetaminophen ([place] 5/325) 2 tab PO Q4H PRN PRN Reason: Severe Pain (7-10) Benzonatate (Tessalon) 100 mg PO Q6H PRN PRN Reason: Cough Bisacodyl (Dulcolax) 10 mg PO DAILYPRN PRN PRN Reason: Constipation Clonidine (Catapres) 0.1 mg PO Q4H PRN PRN Reason: Systolic BP > 180 Famotidine (Pepcid) 20 mg PO 2100 [facility] Last Admin: 12/21/18 20:37 Dose: 20 mg Guaifenesin (Robitussin Sf) 200 mg PO Q4H PRN PRN Reason: Cough Hydralazine HCl (Apresoline) 10 mg SLOW IVP Q4H PRN PRN Reason: SBP > 180 and HR < 70 Metronidazole 500 mg/ Device 100 mls @ 100 mls/hr IVPB Q8HR [facility] Last Admin: 12/21/18 20:38 Dose: 100 mls Dextrose/Sodium Chloride (D5 1/2 Ns) 1,000 mls @ 30 mls/hr IV .Q24H [facility] Last Admin: 12/20/18 20:29 Dose: 1,000 mls Ciprofloxacin/Dextrose 200 mg/ (Device) 100 mls @ 100 mls/hr IVPB 0200,1400 [facility] Last Admin: 12/21/18 15:50 Dose: 100 mls Miscellaneous Medication (Pharmacy To Dose) 1 each IVPB PRN PRN PRN Reason: Pharmacy to dose Miscellaneous Medication (Pharmacy To Dose) 1 each IVPB PRN PRN PRN Reason: Pharmacy to dose Morphine Sulfate (Morphine) 2 mg SLOW IVP Q4H PRN PRN Reason: severe pain Last Admin: 12/19/18 17:50 Dose: 2 mg Nitroglycerin (Nitrostat) 0.4 mg SL Q5MIN PRN PRN Reason: Chest Pain Ondansetron HCl (Zofran) 4 mg IVP Q6H PRN PRN Reason: Nausea/Vomiting Saccharomyces Boulardii (Florastor) 250 mg PO DAILY [facility] Last Admin: 12/21/18 08:12 Dose: 250 mg Senna/Docusate Sodium (Senokot S) 2 tab PO BID PRN PRN Reason: Constipation Sodium Chloride ([place] Nasal [place] 0.65%) 0 ml EA NARE QIDPRN PRN PRN Reason: Nasal Congestion Sodium Chloride (Flush - Normal Saline) 10 ml IVF Q12HR [facility] Last Admin: 12/21/18 20:41 Dose: Not Given Sodium Chloride (Flush - Normal Saline) 10 ml IVF PRN PRN PRN Reason: Saline Flush
[2018-12-22] MEDS: Ciprofloxacin Lactate/D5W 200 MG in Premix Bag 1 BAG IVPB SCH ×2 (02:05→18:33)
[2018-12-22] MEDS: metroNIDAZOLE 500 MG in Premix Bag 1 BAG IVPB SCH ×3 (05:25→20:36)
[2018-12-22 06:46] LABS: ALT (SGPT) 11 U/L (8-55); AST (SGOT) 21 U/L (5-34); Albumin 3.4 g/dL (3.5-5.0); Alkaline Phosphatase 60 U/L (40-150); Anion Gap 20 mmol/L (10-20); BUN (Urea Nitrogen) 41 mg/dL (8.9-20.6); Bilirubin, Total 0.5 mg/dL (0.2-1.2); Calc. Creatinine Clearance 8 mL/min (70-130); Calcium 9.2 mg/dL (7.8-10.44); Carbon Dioxide 19 mmol/L (22-29); Chloride 99 mmol/L (98-107); Estimated GFR-MDRD 4; Globulin 3.3 g/dL (2.4-3.5); Glucose 90 mg/dL (70-105); Protein, Total 6.7 g/dL (6.0-8.3); Sodium 134 mmol/L (136-145)
[2018-12-22 07:24] LABS: #Eosinphils 0.2 thou/uL (0.0-0.7); #Lymphocytes 1.1 thou/uL (1.20-3.40); #Monocytes 0.7 thou/uL (0.11-0.59); #Neutrophils 5.8 thou/uL (1.40-6.50); %Basophils 0.2 % (0.0-1.0); %Eosinophils 3.1 % (0.0-10.0); %Lymphocytes 13.9 % (21.0-51.0); %Monocytes 8.8 % (0.0-10.0); %Neutrophils 74.1 % (42.0-75.0); Hemoglobin 13.6 g/dL (14.0-18.0); Mean Corpuscular HGB CONC 33.7 g/dL (32.0-36.0); Mean Corpuscular Hemoglobin 30.7 pg (27.0-31.0); Mean Corpuscular Volume 90.9 fL (78.0-98.0); Mean Platelet Volume 9.3 fL (7.4-10.4); Platelet Count 108 thou/uL (130-400); Platelet Morphology Comment Appears Decreased; RBC Distribution Width 12.6 % (11.5-14.5); RBC Morphology Normal; Red Blood Cell (RBC) Count 4.43 mill/uL (4.70-6.10); White Blood Cell (WBC) Count 7.8 thou/uL (4.8-10.8)
[2018-12-22] MEDS: Saccharomyces boulardii 250 MG CAP PO SCH (07:58)
--- NOTE | 2018-12-22 08:23 | CT ---
CT OF THE ABDOMEN AND PELVIS WITH IV CONTRAST INDICATION: History of persistent fever and diverticulitis COMPARISON: CT abdomen pelvis dated December 17, 2018 FINDINGS: ABDOMEN: Lung bases: Clear Liver: There is stable focal fatty infiltration near the falciform ligament. Gallbladder: There is vicarious excretion of contrast within the gallbladder. Pancreas: Normal. Adrenal glands: Normal. Spleen: Normal. Kidneys: There are multiple small cysts involving the right left kidney with bilateral nonobstructing renal calculi which are stable. Retroperitoneum of the upper abdomen: No lymphadenopathy or free fluid is identified. Pelvis: Small and large bowel: There persist wall thickening involving a short segment of the sigmoid colon w ith slightly more pronounced pericolonic inflammatory stranding. There is increased fluid in the sigmoid mesentery that does not appear organized to suggest presence of abscess. This is best seen on image 62 of series 2. There is a normal appendix in the right lower quadrant of the abdomen. Rectal and perirectal soft tissues:Normal. Reproductive structures: Normal. Free fluid in pelvis: No free fluid is evident. Lymphadenopathy pelvis: No lymphadenopathy is evident. Vascular structures: There are mild scattered vascular calcifications involving the abdominal pelvic vasculature. Osseous structures: No acute osseous abnormality. No destructive osteolytic or osteoblastic lesion i s identified. There is scattered degenerative and osteoarthritic changes. IMPRESSION: 1. Persistent sigmoid diverticulitis with worsening pericolonic phlegmon. This is not organized enoug h for percutaneous drainage. Recommend follow-up CT in one to 2 weeks. 2. Stable bilateral renal cysts and bilateral nephrolithiasis
--- NOTE | 2018-12-22 10:22 | PRG ---
DATE OF SERVICE: 12/22/2018 SUBJECTIVE: Mr. Jean-Pierre Dickinson is a 43-year-old male with ESRD and followed by the [facility]al [facility] for his maintenance hemodialysis. The patient was diagnosed with diverticulitis. He is on IV antibiotics. Repeat CT of the abdomen and pelvis shows persistent sigmoid diverticulitis with worsening pericolonic phlegmon. Recommendation is repeat CAT scan again 1 to 2 weeks. GI is following. OBJECTIVE: VITAL SIGNS: Blood pressure is 114/76, heart rate 76, respiratory rate 18, temperature 98.5, and pulse ox 95%. GENERAL: Awake, alert, comfortable, supine, not in distress. SKIN: Adequate turgor. HEENT: Pinkish conjunctivae. Anicteric sclerae. No neck mass. No carotid bruits. No JVD. CHEST: No deformities. LUNGS: Clear breath sounds. No wheezing. No crackles. HEART: Normal sinus rhythm. No murmurs, no gallops, no rubs. ABDOMEN: Globular, soft, nontender. No masses. EXTREMITIES: No edema. No deformities. MEDICATIONS: Medications of December 22, 2018, reviewed. LABORATORY DATA: Laboratories of December 22, 2018, white count 7.8, hemoglobin 13.6. Sodium 134, potassium 4, chloride 99, carbon dioxide 19, BUN 41, creatinine 14.45, calcium 9.2, albumin 3.4, AST 21, ALT 11. ASSESSMENT AND PLAN: 1. End-stage renal disease, stable. We will continue current hemodialysis regimen of Saturday, , and Saturday. Since the patient received contrast, we will do a short 2-hour hemodialysis today. 2. Acute diverticulitis, clinically improving. The abdominal pain is less this morning. Continue IV antibiotics. GI is following. 3. Overall agree with current management. Job ID: [id number]
[2018-12-22] MEDS: Dextrose 5 %-0.45 % NaCl 1,000 ML IV SCH (15:41)
--- NOTE | 2018-12-22 18:12 | PDOC.PN ---
- Subjective Encounter Start Date: 12/22/18 Encounter Start Time: 17:30 Patient seen and examined for Acute Diverticulitis. Abd pain the same. Tolerating clear liqd diet. No fever. No new complaints. No overnight events - Objective MAR Reviewed: Yes Vital Signs & Weight: Vital Signs (12 hours) Temp Pulse Resp BP Pulse Ox 12/22/18 08:00 95 12/22/18 07:37 98.5 F 76 18 114/76 95 Weight Weight 185 lb I&O: 12/21/18 12/22/18 12/23/18 06:59 06:59 06:59 Intake Total 1170 Balance 1170 Result Diagrams: 12/22/18 05:36 12/22/18 05:36 Radiology Reviewed by me: Yes (CT abd - Diverticulitis ?abscess) Phys Exam - Physical Examination Constitutional: NAD Respiratory: no wheezing, no rhonchi Cardiovascular: RRR, no rub Gastrointestinal: soft, positive bowel sounds mild tenderness in left lower quadrants Musculoskeletal: no edema Neurological: moves all 4 limbs Dx/Plan - Plan DVT proph w/SCDs IMPRESSION: Sepsis due to acute Diverticulitis HTN ESRD on HD Obesity BMI 30.8 BPH Thrombocytopenia Abn LFTs B/L nonobstructing renal calculi Hiatal hernia PLAN: Cont IV Cipro/Flagyl Cont full liqd diet Consult GI due to worsening Diverticulitis on CT s/p dialysis today AM labs Cont other meds as below Review of Systems - Review of Systems Respiratory: negative: Cough, Dry, Shortness of Breath, Hemoptysis, SOB with Excertion, Pleuritic Pain, Sputum, Wheezing Cardiovascular: negative: chest pain, palpitations, orthopnea, paroxysmal nocturnal dyspnea, edema, light headedness, other - Medications/Allergies Allergies/Adverse Reactions: Allergies Allergy/AdvReac Type Severity Reaction Status Date / Time Penicillins Allergy Severe ITCHING, Verified 04/16/17 16:47 HIVES Medications: Current Medications Acetaminophen (Tylenol) 650 mg [place] Q4H PRN PRN Reason: Headache/Fever/Mild Pain (1-3) Acetaminophen (Tylenol) 650 mg PO Q4H PRN PRN Reason: Headache/Fever/Mild Pain (1-3) Last Admin: 12/18/18 17:38 Dose: 650 mg Hydrocodone Bitart/Acetaminophen ([place] 5/325) 1 tab PO Q4H PRN PRN Reason: Moderate Pain (4-6) Hydrocodone Bitart/Acetaminophen ([place] 5/325) 2 tab PO Q4H PRN PRN Reason: Severe Pain (7-10) Benzonatate (Tessalon) 100 mg PO Q6H PRN PRN Reason: Cough Bisacodyl (Dulcolax) 10 mg PO DAILYPRN PRN PRN Reason: Constipation Clonidine (Catapres) 0.1 mg PO Q4H PRN PRN Reason: Systolic BP > 180 Famotidine (Pepcid) 20 mg PO 2100 [facility] Last Admin: 12/21/18 20:37 Dose: 20 mg Guaifenesin (Robitussin Sf) 200 mg PO Q4H PRN PRN Reason: Cough Hydralazine HCl (Apresoline) 10 mg SLOW IVP Q4H PRN PRN Reason: SBP > 180 and HR < 70 Metronidazole 500 mg/ Device 100 mls @ 100 mls/hr IVPB Q8HR [facility] Last Admin: 12/22/18 17:11 Dose: Not Given Dextrose/Sodium Chloride (D5 1/2 Ns) 1,000 mls @ 30 mls/hr IV .Q24H [facility] Last Admin: 12/22/18 15:41 Dose: Not Given Ciprofloxacin/Dextrose 200 mg/ (Device) 100 mls @ 100 mls/hr IVPB 0200,1400 [facility] Last Admin: 12/22/18 02:05 Dose: 100 mls Miscellaneous Medication (Pharmacy To Dose) 1 each IVPB PRN PRN PRN Reason: Pharmacy to dose Miscellaneous Medication (Pharmacy To Dose) 1 each IVPB PRN PRN PRN Reason: Pharmacy to dose Morphine Sulfate (Morphine) 2 mg SLOW IVP Q4H PRN PRN Reason: severe pain Last Admin: 12/19/18 17:50 Dose: 2 mg Nitroglycerin (Nitrostat) 0.4 mg SL Q5MIN PRN PRN Reason: Chest Pain Ondansetron HCl (Zofran) 4 mg IVP Q6H PRN PRN Reason: Nausea/Vomiting Saccharomyces Boulardii (Florastor) 250 mg PO DAILY [facility] Last Admin: 12/22/18 07:58 Dose: 250 mg Senna/Docusate Sodium (Senokot S) 2 tab PO BID PRN PRN Reason: Constipation Sodium Chloride ([place] Nasal [place] 0.65%) 0 ml EA NARE QIDPRN PRN PRN Reason: Nasal Congestion Sodium Chloride (Flush - Normal Saline) 10 ml IVF Q12HR [facility] Last Admin: 12/22/18 08:00 Dose: 10 ml Sodium Chloride (Flush - Normal Saline) 10 ml IVF PRN PRN PRN Reason: Saline Flush
[2018-12-22] MEDS: Famotidine 20 MG TAB PO SCH (20:17)
--- NOTE | 2018-12-23 00:42 | CON ---
DATE OF CONSULTATION: 12/22/2018 REASON FOR CONSULTATION: Diverticulitis. HISTORY OF PRESENT ILLNESS: Andrés Dickinson is a very pleasant 43-year-old man with end-stage renal disease on dialysis. He has no prior significant gastrointestinal history. He was admitted to the hospital 5 days ago on December 17, with complaint of 4 days, gradually worsening abdominal pain in the lower abdomen, progressing to nausea and vomiting, and then to fevers. He had some loose stools as well on presentation, but has not had any blood in the stool. On admission, he did have a leukocytosis with WBC up to 14.[address] scan of the abdomen and pelvis demonstrated short-segment inflammatory changes in the sigmoid colon, most consistent with acute diverticulitis. He was initially placed on Rocephin and Flagyl. He has had slow clinical improvement over the past few days on the antibiotics. Couple of days ago, the Rocephin was changed to ciprofloxacin IV. He still intermittently has some lower abdominal discomfort, but says it is significantly improved today and is only tender to palpation. He is tolerating a full liquid diet well, but has not yet advance to regular diet. He has been afebrile. A CT of the abdomen and pelvis was repeated this morning and this demonstrates persistence of wall thickening in the sigmoid colon, now with inflammatory stranding and an area of mesenteric edema, which is not organized enough for percutaneous drainage. There is no drainable abscess. No evidence of any free air, but repeat CT followup was recommended at a 1-2 week interval. REVIEW OF SYSTEMS: Full review of systems including constitutional, head, eyes, ears, nose, throat, GI, , cardiovascular, respiratory, musculoskeletal, and neurologic systems are negative except as noted in the HPI. PAST MEDICAL HISTORY: 1. End-stage renal disease, on dialysis Saturday, , Saturday. 2. BPH. 3. Obesity. 4. Hypertension. 5. Dialysis shunt to the right arm. 6. Prostatectomy. SOCIAL HISTORY: No tobacco, alcohol, or drug abuse. FAMILY HISTORY: Positive for diabetes in aunts and uncles. No familial history of cancer. ALLERGIES: PENICILLIN. HOME MEDICATIONS: 1. Sensipar. 2. Vitamin D3. 3. Fosrenol. INPATIENT MEDICATIONS: 1. Tylenol p.r.n. 2. Ciprofloxacin 200 mg IV q.12 hours. 3. Pepcid 20 mg daily. 4. Metronidazole 500 mg IV q.8 hours. 5. Morphine p.r.n., last dose was 3 days ago. 6. Florastor 250 mg p.o. daily. PHYSICAL EXAMINATION: VITAL SIGNS: Temperature 98.5, pulse 76, blood pressure 114/76, 95% oxygen saturation on room air. GENERAL: A 43-year-old man, lying in bed comfortably, in no distress. MENTAL: He is in good spirits. Alert, oriented, pleasant and conversational. SKIN: No jaundice, no rashes were palpable. EYES: No scleral icterus. Extraocular movements intact. ENT: Mucous membranes moist. No oral lesions. LYMPH: No submandibular supraclavicular lymphadenopathy. Thyroid nontender to palpation. HEART: Regular rate and rhythm. LUNGS: Clear to auscultation bilaterally. ABDOMEN: Nondistended, bowel sounds present. Soft, some tenderness to palpation in the left lower quadrant, but no guarding or rebound tenderness. EXTREMITIES: No peripheral edema. VESSELS: Radial pulses 2+ bilaterally. NEUROLOGIC: Cranial nerves 2-12 intact bilaterally. No focal deficits. LABORATORY STUDIES: WBC normalized to 7.8, hemoglobin 13.6, platelets 108, BUN 41, creatinine 14.45. Lipase 18, total bilirubin 0.5, alkaline phosphatase 60, AST 21, ALT 11, albumin 3.4. Blood culture no growth after 5 days. IMAGING STUDIES: On 12/17/2018, CT of the abdomen and pelvis and 12/22/2018, CT of the abdomen and pelvis as detailed in the HPI. ASSESSMENT AND PLAN: Acute sigmoid diverticulitis, with phlegmon, disorganized, not drainable. The patient has had significant clinical improvement over the past 5 days on the IV antibiotics. He does have this disorganized fluid collection, which is not drainable, and may indeed completely resolve on its own. This will need to be followed with imaging however. I would recommend that his diet could be further advanced as tolerated to a regular diet. Once he is tolerating his diet, unless pain symptoms were to significantly worsen, I think he could be discharged from the hospital and transitioned to oral antibiotics. I would extend the antibiotics out to finish 2 weeks from today. We will plan to see him back in the GI Clinic at the end of that time, and from there we can set up a repeat CT imaging. Depending on those results, we will also likely schedule him for followup colonoscopy in the next 2 to 3 months. Thank you for the consultation. Please call back anytime with questions or concerns. Job ID: [id number]
[2018-12-23] MEDS: Ciprofloxacin Lactate/D5W 200 MG in Premix Bag 1 BAG IVPB SCH ×2 (01:32→13:04)
[2018-12-23] MEDS: metroNIDAZOLE 500 MG in Premix Bag 1 BAG IVPB SCH ×2 (05:22→15:10)
[2018-12-23] MEDS: Dextrose 5 %-0.45 % NaCl 1,000 ML IV SCH (05:23)
[2018-12-23 06:38] LABS: #Eosinphils 0.2 thou/uL (0.0-0.7); #Lymphocytes 0.8 thou/uL (1.20-3.40); #Monocytes 0.5 thou/uL (0.11-0.59); #Neutrophils 3.7 thou/uL (1.40-6.50); %Basophils 0.3 % (0.0-1.0); %Eosinophils 3.8 % (0.0-10.0); %Lymphocytes 15.1 % (21.0-51.0); %Monocytes 9.1 % (0.0-10.0); %Neutrophils 71.7 % (42.0-75.0); Hemoglobin 11.5 g/dL (14.0-18.0); Mean Corpuscular HGB CONC 33.2 g/dL (32.0-36.0); Mean Corpuscular Hemoglobin 31.2 pg (27.0-31.0); Mean Corpuscular Volume 93.8 fL (78.0-98.0); Platelet Count 131 thou/uL (130-400); RBC Distribution Width 12.7 % (11.5-14.5); Red Blood Cell (RBC) Count 3.68 mill/uL (4.70-6.10); White Blood Cell (WBC) Count 5.1 thou/uL (4.8-10.8)
[2018-12-23 07:22] LABS: Anion Gap 15 mmol/L (10-20); BUN (Urea Nitrogen) 25 mg/dL (8.9-20.6); Calc. Creatinine Clearance 11 mL/min (70-130); Calcium 7.4 mg/dL (7.8-10.44); Carbon Dioxide 20 mmol/L (22-29); Chloride 106 mmol/L (98-107); Estimated GFR-MDRD 6; Glucose 80 mg/dL (70-105); Potassium 3.6 mmol/L (3.5-5.1); Sodium 137 mmol/L (136-145)
[2018-12-23] MEDS: Saccharomyces boulardii 250 MG CAP PO SCH (08:22)
--- NOTE | 2018-12-23 10:12 | PRG ---
DATE OF SERVICE: SUBJECTIVE: Mr. Jean-Pierre Dickinson is a 43-year-old male with ESRD and followed up by the Renal Service for his maintenance hemodialysis. He is currently dialyzing, I am at the bedside supervising his dialysis. He is tolerating said treatment. His abdominal pain is much better. He has no fever in the last day or so. No other complaints. No chest pain or shortness of breath. OBJECTIVE: VITAL SIGNS: Blood pressure 100/68, heart rate 77, respiratory rate 16, temperature 98.3, and pulse ox 96%. GENERAL: Awake, alert, comfortable, not in overt distress. SKIN: Adequate turgor. HEENT: He has pinkish conjunctivae. Anicteric sclerae. NECK: No neck mass. No carotid bruits. No JVD. CHEST: No deformities. LUNGS: Clear breath sounds. No wheezing. No crackles. HEART: Normal sinus rhythm. No murmur. No gallops or rubs. ABDOMEN: Globular, soft, and nontender. No masses. EXTREMITIES: No edema. No deformities. MEDICATIONS: Medications of December 23, 2018, reviewed. LABORATORY DATA: Laboratories of December 23, 2018, white count 5.1 and hemoglobin 11.1. Sodium 137, potassium 3.6, chloride 106, carbon dioxide 20, BUN 25, creatinine 10, and calcium 7.4. ASSESSMENT AND PLAN: 1. Acute diverticulitis - clinically much improved on IV antibiotics. 2. End-stage renal disease, stable, tolerating current hemodialysis regimen. We will plan to do his regular dialysis. No heparin use for the moment. Please note, this patient received extra dialysis yesterday due to the fact that he received contrast. Overall doing better. Job ID: [id number]
[2018-12-23 16:39] VITALS: BP 111/69; TEMP 98.2
--- NOTE | 2018-12-23 18:02 | PRG ---
DATE OF SERVICE: 12/23/2018 SUBJECTIVE: The patient says he is feeling a lot better. He is really not having any abdominal pain, just a minimal tenderness to palpation in the left lower quadrant. He is tolerating his regular diet with no nausea, vomiting, or diarrhea. He has remained afebrile. OBJECTIVE: VITAL SIGNS: Temperature 98.2, pulse 74, blood pressure 111/69, 97% oxygen saturation on room air. GENERAL: No acute distress. HEART: Regular rate and rhythm. LUNGS: Clear to auscultation bilaterally. ABDOMEN: Bowel sounds present. Soft and nontender to palpation throughout. EXTREMITIES: No peripheral edema. LABORATORY STUDIES: WBC down to 5.1, hemoglobin 11.5, platelets 131. Sodium 137, potassium 3.6, BUN 25, creatinine 10.04. ASSESSMENT AND PLAN: 1. Acute sigmoid diverticulitis, clinically improved. 2. Left lower quadrant pain, nearly resolved. The patient is now tolerating regular diet with only minimal symptoms. Clinically, the diverticulitis has improved, despite the repeat CT appearance of disorganized phlegmon in the sigmoid mesentery. I would stick with the plan to transition to oral antibiotics on hospital discharge and continue for 2 more weeks. We will plan to see him back in the GI clinic at the end of that time, and from there, we can set up repeat CT imaging, as well as followup colonoscopy. 3. GI will sign off, but please call anytime with questions or concerns. Job ID: [id number]
--- NOTE | 2018-12-23 19:00 | PDOC.PN ---
- Subjective Encounter Start Date: 12/23/18 Encounter Start Time: 13:00 Patient seen and examined for Acute Diverticulitis. Tolerating regular diet. No new complaints. No overnight events - Objective MAR Reviewed: Yes Vital Signs & Weight: Vital Signs (12 hours) Temp Pulse Resp BP Pulse Ox 12/23/18 16:38 98.2 F 74 16 111/69 97 12/23/18 12:28 98.3 F 73 16 126/85 96 12/23/18 08:22 96 12/23/18 07:59 98.3 F 77 16 100/68 96 Weight Weight 185 lb I&O: 12/22/18 12/23/18 12/24/18 06:59 06:59 06:59 Intake Total 2150 1066 Balance 2150 1066 Result Diagrams: 12/23/18 05:54 12/23/18 05:54 Phys Exam - Physical Examination Constitutional: NAD Respiratory: no wheezing, no rhonchi Cardiovascular: RRR, no rub Gastrointestinal: soft, positive bowel sounds LLQ tenderness/ no rebound Musculoskeletal: no edema Dx/Plan - Plan DVT proph w/SCDs IMPRESSION: Sepsis due to acute Diverticulitis HTN ESRD on HD Obesity BMI 30.8 BPH Thrombocytopenia Abn LFTs B/L nonobstructing renal calculi Hiatal hernia PLAN: Cont IV Cipro/Flagyl Cont regular diet GI input appreciated s/p repeat dialysis today Cont other meds as below DC home once cleared by GI Review of Systems - Review of Systems Respiratory: negative: Cough, Dry, Shortness of Breath, Hemoptysis, SOB with Excertion, Pleuritic Pain, Sputum, Wheezing Cardiovascular: negative: chest pain, palpitations, orthopnea, paroxysmal nocturnal dyspnea, edema, light headedness, other - Medications/Allergies Allergies/Adverse Reactions: Allergies Allergy/AdvReac Type Severity Reaction Status Date / Time Penicillins Allergy Severe ITCHING, Verified 04/16/17 16:47 HIVES Medications: Current Medications Acetaminophen (Tylenol) 650 mg FL Q4H PRN PRN Reason: Headache/Fever/Mild Pain (1-3) Acetaminophen (Tylenol) 650 mg PO Q4H PRN PRN Reason: Headache/Fever/Mild Pain (1-3) Last Admin: 12/18/18 17:38 Dose: 650 mg Hydrocodone Bitart/Acetaminophen ([place] 5/325) 1 tab PO Q4H PRN PRN Reason: Moderate Pain (4-6) Hydrocodone Bitart/Acetaminophen ([place] 5/325) 2 tab PO Q4H PRN PRN Reason: Severe Pain (7-10) Benzonatate (Tessalon) 100 mg PO Q6H PRN PRN Reason: Cough Bisacodyl (Dulcolax) 10 mg PO DAILYPRN PRN PRN Reason: Constipation Clonidine (Catapres) 0.1 mg PO Q4H PRN PRN Reason: Systolic BP > 180 Famotidine (Pepcid) 20 mg PO 2100 [facility] Last Admin: 12/22/18 20:17 Dose: 20 mg Guaifenesin (Robitussin Sf) 200 mg PO Q4H PRN PRN Reason: Cough Hydralazine HCl (Apresoline) 10 mg SLOW IVP Q4H PRN PRN Reason: SBP > 180 and HR < 70 Metronidazole 500 mg/ Device 100 mls @ 100 mls/hr IVPB Q8HR [facility] Last Admin: 12/23/18 15:10 Dose: 100 mls Dextrose/Sodium Chloride (D5 1/2 Ns) 1,000 mls @ 30 mls/hr IV .Q24H [facility] Last Admin: 12/23/18 05:23 Dose: 1,000 mls Ciprofloxacin/Dextrose 200 mg/ (Device) 100 mls @ 100 mls/hr IVPB 0200,1400 [facility] Last Admin: 12/23/18 13:04 Dose: 100 mls Miscellaneous Medication (Pharmacy To Dose) 1 each IVPB PRN PRN PRN Reason: Pharmacy to dose Miscellaneous Medication (Pharmacy To Dose) 1 each IVPB PRN PRN PRN Reason: Pharmacy to dose Morphine Sulfate (Morphine) 2 mg SLOW IVP Q4H PRN PRN Reason: severe pain Last Admin: 12/19/18 17:50 Dose: 2 mg Nitroglycerin (Nitrostat) 0.4 mg SL Q5MIN PRN PRN Reason: Chest Pain Ondansetron HCl (Zofran) 4 mg IVP Q6H PRN PRN Reason: Nausea/Vomiting Saccharomyces Boulardii (Florastor) 250 mg PO DAILY [facility] Last Admin: 12/23/18 08:22 Dose: 250 mg Senna/Docusate Sodium (Senokot S) 2 tab PO BID PRN PRN Reason: Constipation Sodium Chloride ([place] Nasal [place] 0.65%) 0 ml EA NARE QIDPRN PRN PRN Reason: Nasal Congestion Sodium Chloride (Flush - Normal Saline) 10 ml IVF Q12HR [facility] Last Admin: 12/23/18 08:22 Dose: 10 ml Sodium Chloride (Flush - Normal Saline) 10 ml IVF PRN PRN PRN Reason: Saline Flush
--- NOTE | 2018-12-23 22:16 | DIS ---
DATE OF ADMISSION: 12/17/2018 DATE OF DISCHARGE: 12/23/2018 DISCHARGE DISPOSITION: Home. FOLLOWUP: 1. Follow up with primary care physician, Dr. Katt Ca, in 1 week. 2. Follow up with Dr. Segundo Gaines in 2 weeks. ALLERGIES: THE PATIENT IS ALLERGIC TO PENICILLIN. DISCHARGE MEDICATIONS: 1. Ciprofloxacin 250 mg twice daily for next 2 weeks. 2. Flagyl 250 mg every 8 hourly for next 2 weeks. 3. Sensipar 30 mg daily. 4. Vitamin D3 of 2000 units daily. 5. Lanthanum carbonate 1000 mg three times daily. 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 Gastroenterology, Dr. Gaines. 2. Nephrology, Dr. Zaragoza. BRIEF HOSPITAL COURSE: The patient is a 43-year-old male with end-stage renal disease, on hemodialysis, presented to the emergency room on December 17, 2018, with abdominal discomfort and fever. His vital signs in the emergency room showed temperature 100.8 with pulse rate of 103, blood pressure of 115/78, and O2 saturation 94% on room air. CT scan of the abdomen in the emergency room was consistent with acute sigmoid diverticulitis without any abscess. Please refer to the history and physical for further details. The patient was admitted to the medical floor with a diagnosis of acute diverticulitis. He was placed on ceftriaxone and Flagyl. However, 2 to 3 days later despite antibiotics, he continued to have low-grade fever. His abdominal pain persisted. For this reason, CT scan was repeated. CT scan of the abdomen was repeated yesterday with oral and IV contrast that showed persistent sigmoid diverticulitis with worsening pericolonic phlegmon. A repeat CT scan in 1 to 2 weeks was recommended. He was evaluated by Gastroenterology, Dr. Gaines, who recommended to continue antibiotics for at least 2 more weeks. He will follow up with Dr. Gaines as outpatient for a repeat CT scanning. He has been cleared by Dr. Gaines for discharge. FINAL DIAGNOSES: 1. Sepsis due to acute diverticulitis. 2. Hypertension. 3. End-stage renal disease, on hemodialysis. 4. Obesity with a BMI of 30.8. 5. Benign prostatic hypertrophy. 6. Thrombocytopenia. 7. Abnormal LFTs. 8. Bilateral nonobstructing renal calculi. 9. Hiatal hernia. 10. Repeat CT scan of the abdomen in 1 to 2 weeks is recommended by Radiology. Primary care physician advised to follow. 11. Anemia secondary to renal insufficiency. 12. Mild hyponatremia. PLAN: Plan of care was discussed with the patient in detail. He stated understanding. Job ID: [id number]
== END 2018-12-23 19:40 | disposition home or self-care (01) | DRG 871 ==
LOC: ERS 09:49 → T4-A 12:50
PROVIDERS: ADMIT Internal Medicine; ATTEND Internal Medicine
PROC: 5A1D70Z Performance of Urinary Filtration, Intermittent, Less than 6 Hours Per Day (ICD-10-PCS; principal; 2018-12-18)
DX: A41.9 Sepsis, unspecified organism (principal); N18.6 End stage renal disease; K57.32 Diverticulitis of large intestine without perforation or abscess without bleeding; I12.0 Hypertensive chronic kidney disease with stage 5 chronic kidney disease or end stage renal disease; E87.1 Hypo-osmolality and hyponatremia; E66.9 Obesity, unspecified; Z68.30 Body mass index [BMI] 30.0-30.9, adult; N40.0 Benign prostatic hyperplasia without lower urinary tract symptoms; D69.6 Thrombocytopenia, unspecified; K44.9 Diaphragmatic hernia without obstruction or gangrene; D63.1 Anemia in chronic kidney disease; N20.0 Calculus of kidney; Z90.79 Acquired absence of other genital organ(s); Z88.0 Allergy status to penicillin; Z79.899 Other long term (current) drug therapy
CPT/HCPCS: 36415; 74177; 80048; 80053; 80076; 83605; 83690; 85025; 87040; 90471; 90670; 90935; 93005; 96361; 96365; 96367; 96375; G0009; G0257; J0696; J0744; J1644; J2270; J2405; J3490; Q9966; S0028

== ENCOUNTER 2019-01-23 08:45 | Outpatient (CLI) | payer BC ==
--- NOTE | 2019-01-23 10:05 | CT ---
EXAM: CT ABDOMEN AND PELVIS HISTORY: Diverticulitis. Follow-up exam. Improved symptoms. Intermittent nausea. COMPARISON: 12/22/2018 Procedure: Multiple contiguous axial images were obtained and a CT of the abdomen and pelvis with IV contrast. C oronal reformats were performed. FINDINGS: Lower Chest: within normal limits. Vessels: Normal caliber aorta Heart: Normal heart size. No significant pericardial fluid Abdomen: Portal vein:Patent Gallbladder: No calcified gallstones. Normal caliber wall. Liver: within normal limits. Pancreas: within normal limits. Spleen: within normal limits. Adrenals: within normal limits. Kidneys: Stable hypodensities replacing most of the normal renal parenchyma compatible with polycysti c kidney disease. Stable parenchymal based calcifications. Peritoneum: No ascites or free air, no fluid collection. Bowel: Limited evaluation due to incomplete opacification with oral contrast. No evidence of small yuniel wel obstruction. Ileocecal junction is normal. Normal caliber appendix. Significant reduction of inflammatory changes involving the mid sigmoid colon. Residual stranding of the mesentery, adjacent t o the midportion sigmoid colon likely represents residual post inflammatory change. No abscess or perforation. No significant bowel wall thickening. Scattered diverticula are once again noted. Mesentery and Retroperitoneum: No enlarged mesenteric or retroperitoneal lymph nodes. Abdominal Wall: Umbilical hernia containing mesenteric fat. Pelvis: Reproductive Organs: No pelvic masses. Pelvis: within normal limits. Bladder: within normal limits. Bones: within normal limits. IMPRESSION: 1. Improved and nearly resolved inflammatory changes. Minimal stranding of the mesentery may represen t residual inflammatory change. No perforation or abscess.
== END 2019-01-23 08:46 | disposition home or self-care (01) ==
LOC: BICCT 08:45
PROVIDERS: ATTEND Physician Assistant Medical
DX: K57.32 Diverticulitis of large intestine without perforation or abscess without bleeding (principal)
CPT/HCPCS: 74177

== ENCOUNTER 2020-09-29 16:29 | Emergency (ER) | payer BC ==
[2020-09-29 17:03] LABS: #Eosinphils 0.1 thou/uL (0.0-0.7); #Lymphocytes 1.1 thou/uL (1.20-3.40); #Monocytes 0.3 thou/uL (0.11-0.59); #Neutrophils 3.8 thou/uL (1.40-6.50); %Basophils 0.5 % (0.0-1.0); %Eosinophils 2.3 % (0.0-10.0); %Lymphocytes 20.9 % (21.0-51.0); %Neutrophils 70.3 % (42.0-75.0); Hemoglobin 15.7 g/dL (14.0-18.0); Mean Corpuscular HGB CONC 32.9 g/dL (32.0-36.0); Mean Corpuscular Volume 88.2 fL (78.0-98.0); Mean Platelet Volume 8.7 fL (7.4-10.4); Platelet Count 128 thou/uL (130-400); RBC Distribution Width 13.1 % (11.5-14.5); Red Blood Cell (RBC) Count 5.43 mill/uL (4.70-6.10); White Blood Cell (WBC) Count 5.4 thou/uL (4.8-10.8)
[2020-09-29 17:30] LABS: ALT (SGPT) 9 U/L (8-55); AST (SGOT) 11 U/L (5-34); Albumin 4.5 g/dL (3.5-5.0); Alkaline Phosphatase 123 U/L (40-110); Anion Gap 17 mmol/L (10-20); BUN (Urea Nitrogen) 21 mg/dL (8.9-20.6); Bilirubin, Total 0.8 mg/dL (0.2-1.2); Calc. Creatinine Clearance 0 mL/min (70-130); Calcium 8.8 mg/dL (7.8-10.44); Carbon Dioxide 31 mmol/L (22-29); Chloride 95 mmol/L (98-107); Globulin 3.4 g/dL (2.4-3.5); Glucose 107 mg/dL (70-105); Potassium 3.9 mmol/L (3.5-5.1); Protein, Total 7.9 g/dL (6.0-8.3); Sodium 139 mmol/L (136-145)
[2020-09-29] MEDS ORDERED: Aspirin Chewable 81 MG TAB ONE (17:33)
--- NOTE | 2020-09-29 17:35 | RAD ---
PORTABLE CHEST: 09/29/20 PROVIDED CLINICAL HISTORY: Chest pain. FINDINGS: Comparison 04/09/18. Cardiac and mediastinal silhouette is within normal limits. No focal consolidation, pleural fluid or pneumothorax apparent. Vascular stent material now overlies the left infraclavicular region. IMPRESSION: No evidence for an acute cardiopulmonary process. POS: [facility]LE[facility]
== END 2020-09-29 19:11 | disposition home or self-care (01) ==
LOC: ERS 16:29
DX: R07.89 Other chest pain (principal); I12.0 Hypertensive chronic kidney disease with stage 5 chronic kidney disease or end stage renal disease; N18.6 End stage renal disease; N40.0 Benign prostatic hyperplasia without lower urinary tract symptoms; Z99.2 Dependence on renal dialysis; Z79.899 Other long term (current) drug therapy
CPT/HCPCS: 36415; 71045; 80053; 84484; 85025; 93005

== ENCOUNTER 2020-12-24 07:35 | Inpatient (IN) | payer BC ==
[2020-12-24 08:41] LABS: #Basophils 0.1 thou/uL (0.0-0.2); #Eosinphils 0.2 thou/uL (0.0-0.7); #Lymphocytes 1.6 thou/uL (1.20-3.40); #Monocytes 0.5 thou/uL (0.11-0.59); %Basophils 0.8 % (0.0-1.0); %Eosinophils 3.1 % (0.0-10.0); %Lymphocytes 21.7 % (21.0-51.0); %Monocytes 6.2 % (0.0-10.0); %Neutrophils 68.2 % (42.0-75.0); Hemoglobin 14.8 g/dL (14.0-18.0); Mean Corpuscular HGB CONC 32.3 g/dL (32.0-36.0); Mean Corpuscular Hemoglobin 29.1 pg (27.0-31.0); Mean Corpuscular Volume 90.1 fL (78.0-98.0); Mean Platelet Volume 8.3 fL (7.4-10.4); Platelet Count 151 thou/uL (130-400); RBC Distribution Width 13.6 % (11.5-14.5); Red Blood Cell (RBC) Count 5.08 mill/uL (4.70-6.10); White Blood Cell (WBC) Count 7.4 thou/uL (4.8-10.8)
[2020-12-24 09:05] LABS: ALT (SGPT) 13 U/L (8-55); AST (SGOT) 12 U/L (5-34); Albumin 4.1 g/dL (3.5-5.0); Alkaline Phosphatase 156 U/L (40-110); Anion Gap 19 mmol/L (10-20); BUN (Urea Nitrogen) 39 mg/dL (8.9-20.6); Bilirubin, Total 0.9 mg/dL (0.2-1.2); Calc. Creatinine Clearance 0 mL/min (70-130); Calcium 9.1 mg/dL (7.8-10.44); Carbon Dioxide 28 mmol/L (22-29); Chloride 98 mmol/L (98-107); Globulin 3.6 g/dL (2.4-3.5); Glucose 86 mg/dL (70-105); Potassium 4.6 mmol/L (3.5-5.1); Protein, Total 7.7 g/dL (6.0-8.3); Sodium 140 mmol/L (136-145)
[2020-12-24] MEDS ORDERED: Acetaminophen 325 MG TAB PO PRN (11:13)
[2020-12-24] MEDS ORDERED: HYDROcodone/Acetaminophen 5/325 mg Tablet PO PRN (11:13)
[2020-12-24] MEDS ORDERED: hydrALAZINE 20 MG/ML VIAL SLOW IVP PRN (11:15)
[2020-12-24] MEDS ORDERED: Ondansetron PF 4 MG/2 ML Vial IVP PRN (11:15)
[2020-12-24 11:47] VITALS: BMI 22.5
[2020-12-24 11:59] LABS: #Basophils 0.1 thou/uL (0.0-0.2); #Eosinphils 0.2 thou/uL (0.0-0.7); #Monocytes 0.5 thou/uL (0.11-0.59); #Neutrophils 5.4 thou/uL (1.40-6.50); %Basophils 0.9 % (0.0-1.0); %Eosinophils 2.8 % (0.0-10.0); %Monocytes 6.3 % (0.0-10.0); Hemoglobin 14.2 g/dL (14.0-18.0); Mean Corpuscular HGB CONC 32.9 g/dL (32.0-36.0); Mean Corpuscular Hemoglobin 29.5 pg (27.0-31.0); Mean Corpuscular Volume 89.8 fL (78.0-98.0); Mean Platelet Volume 8.1 fL (7.4-10.4); Platelet Count 137 thou/uL (130-400); RBC Distribution Width 13.5 % (11.5-14.5); Red Blood Cell (RBC) Count 4.82 mill/uL (4.70-6.10); White Blood Cell (WBC) Count 8.1 thou/uL (4.8-10.8)
[2020-12-24 12:09] LABS: INR-International Normal Ratio 1.1; Prothrombin Time 14.7 sec (12.0-14.7)
[2020-12-24 12:18] LABS: Anion Gap 18 mmol/L (10-20); BUN (Urea Nitrogen) 40 mg/dL (8.9-20.6); Calc. Creatinine Clearance 7 mL/min (70-130); Calcium 9.2 mg/dL (7.8-10.44); Carbon Dioxide 28 mmol/L (22-29); Chloride 98 mmol/L (98-107); Glucose 78 mg/dL (70-105); Potassium 5.2 mmol/L (3.5-5.1); Sodium 139 mmol/L (136-145)
[2020-12-24] MEDS ORDERED: Vancomycin HCl 750 MG in Sodium Chloride 0.9% 250 ML 250 ML IVPB SCH (13:00)
[2020-12-24] MEDS ORDERED: HOLD VANCOMYCIN FOR LEVEL >20 FS SCH (13:00)
[2020-12-24] MEDS ORDERED: Cefepime 1 GM in Sodium Chloride 0.9% 100 ML IVPB SCH (13:00)
[2020-12-24] MEDS ORDERED: VANCOMYCIN 1.25 GM/250 ML BAG 1.25 GM in Premix Bag 1 BAG IVPB SCH (13:00)
[2020-12-24] MEDS ORDERED: Vancomycin 1 GM in Premix Bag 1 BAG IVPB SCH (13:00)
[2020-12-24] MEDS ORDERED: Vancomycin HCl 500 MG in Sodium Chloride 0.9% 100 ML IVPB SCH (13:00)
[2020-12-24 13:41] LABS: SARS-CoV-2 NAA Rapid Test Not Detected (NotDetected)
[2020-12-24] MEDS ORDERED: Vancomycin 1.5 GRAM/300 ML BAG 1.5 GM in Premix Bag 1 BAG IVPB SCH (14:00)
[2020-12-24] MEDS: Sevelamer Carbonate 800 MG TAB PO SCH ×3 (15:25→21:08)
[2020-12-25] MEDS: Sevelamer Carbonate 800 MG TAB PO SCH ×3 (09:13→21:27)
[2020-12-25] MEDS: Cinacalcet HCl 30 MG TAB PO SCH (09:13)
[2020-12-25 10:49] LABS: Anion Gap 25 mmol/L (10-20); BUN (Urea Nitrogen) 59 mg/dL (8.9-20.6); Calc. Creatinine Clearance 6 mL/min (70-130); Calcium 9.1 mg/dL (7.8-10.44); Carbon Dioxide 18 mmol/L (22-29); Chloride 100 mmol/L (98-107); Glucose 74 mg/dL (70-105); Potassium 5.4 mmol/L (3.5-5.1); Sodium 138 mmol/L (136-145)
[2020-12-25] MEDS ORDERED: Bupivacaine 0.25% HCL 30 ML VIAL ONE (11:15)
[2020-12-25] MEDS ORDERED: Heparin 5,000 UNITS/ML VIAL ONE (11:15)
[2020-12-25] MEDS ORDERED: Lidocaine 1% w/Epinephrine 1:100K 20 ML VIAL ONE (11:15)
[2020-12-25] MEDS ORDERED: Protamine Sulfate 50 MG/5 ML VIAL ONE (11:15)
[2020-12-25] MEDS ORDERED: Fentanyl 100 MCG/2 ML VIAL ONE ×2 (11:26→16:51)
[2020-12-25] MEDS ORDERED: Midazolam HCl 2 mg/2 ml Vial ONE (11:26)
[2020-12-25] MEDS ORDERED: ePHEDrine Sulfate 50 MG/10 ML VIAL ONE (11:41)
[2020-12-25] MEDS ORDERED: PROPOFOL 200 MG/20 ML VIAL ONE (11:41)
[2020-12-25] MEDS ORDERED: Lidocaine 1% PF 5 ML VIAL ONE (11:41)
[2020-12-25] MEDS ORDERED: PHENYLEPHRINE-NS 100 MCG/ML 10 ML SYRINGE ONE (11:41)
[2020-12-25] MEDS ORDERED: Phenylephrine 10 MG/ML VIAL ONE (12:09)
[2020-12-25] MEDS ORDERED: Fentanyl 250 MCG/5 ML VIAL ONE (12:30)
[2020-12-25] MEDS ORDERED: HYDROcodone/Acetaminophen 5/325 mg Tablet ONE (18:02)
[2020-12-25] MEDS: Cefepime 0.5 GM, Admixture Fee 1 EACH in Sodium Chloride 0.9% 100 ML IVPB SCH (19:28)
[2020-12-26 06:54] LABS: #Basophils 0.1 thou/uL (0.0-0.2); #Eosinphils 0.1 thou/uL (0.0-0.7); #Lymphocytes 1.4 thou/uL (1.20-3.40); #Monocytes 0.4 thou/uL (0.11-0.59); #Neutrophils 4.9 thou/uL (1.40-6.50); %Basophils 0.7 % (0.0-1.0); %Lymphocytes 20.3 % (21.0-51.0); %Monocytes 6.4 % (0.0-10.0); %Neutrophils 70.7 % (42.0-75.0); Hemoglobin 11.9 g/dL (14.0-18.0); Mean Corpuscular Hemoglobin 28.7 pg (27.0-31.0); Mean Corpuscular Volume 89.7 fL (78.0-98.0); Mean Platelet Volume 8.6 fL (7.4-10.4); Platelet Count 123 thou/uL (130-400); RBC Distribution Width 13.4 % (11.5-14.5); Red Blood Cell (RBC) Count 4.14 mill/uL (4.70-6.10); White Blood Cell (WBC) Count 6.9 thou/uL (4.8-10.8)
[2020-12-26 07:11] LABS: Anion Gap 24 mmol/L (10-20); BUN (Urea Nitrogen) 66 mg/dL (8.9-20.6); Calc. Creatinine Clearance 5 mL/min (70-130); Calcium 8.3 mg/dL (7.8-10.44); Carbon Dioxide 19 mmol/L (22-29); Chloride 98 mmol/L (98-107); Glucose 83 mg/dL (70-105); Potassium 5.7 mmol/L (3.5-5.1); Sodium 135 mmol/L (136-145)
[2020-12-26] MEDS ORDERED: Heparin 10,000 UNITS/ 10 ML VIAL ONE (08:44)
[2020-12-26] MEDS: Sevelamer Carbonate 800 MG TAB PO SCH ×3 (09:29→22:29)
[2020-12-26] MEDS: Cinacalcet HCl 30 MG TAB PO SCH (09:29)
[2020-12-26] MEDS ORDERED: Levofloxacin 500 mg/D5W 100 ml Premix Bag ONE (16:27)
[2020-12-26] MEDS ORDERED: Sodium Chloride 0.9% 20 ML ONE (16:55)
[2020-12-26] MEDS ORDERED: Lidocaine 1% w/Epinephrine 1:100K 20 ML VIAL ONE (16:55)
[2020-12-26] MEDS ORDERED: Bupivacaine PF 0.5% 30 ML VIAL ONE (16:55)
[2020-12-26] MEDS ORDERED: Lidocaine 1% PF 5 ML VIAL ONE (17:32)
[2020-12-26] MEDS ORDERED: PROPOFOL 200 MG/20 ML VIAL ONE (17:32)
[2020-12-26] MEDS ORDERED: Ondansetron HCl/PF 4 MG/2 ML Vial IVP PRN (18:06)
[2020-12-26] MEDS ORDERED: Promethazine HCl 25 MG/ML VIAL IM PRN (18:06)
[2020-12-26] MEDS ORDERED: Promethazine HCl 25 MG/ML VIAL SLOW IVP PRN (18:06)
[2020-12-26] MEDS ORDERED: traMADol HCl 50 MG TAB PO PRN (18:10)
[2020-12-26] MEDS: Cefepime 0.5 GM, Admixture Fee 1 EACH in Sodium Chloride 0.9% 100 ML IVPB SCH (20:12)
[2020-12-26 20:52] LABS: Vancomycin, Random 19.6 ug/mL (See Comment)
[2020-12-26] MEDS ORDERED: Vancomycin HCl 500 MG in Sodium Chloride 0.9% 100 ML IVPB SCH (21:00)
[2020-12-26] MEDS ORDERED: Cefepime 0.5 GM, Admixture Fee 1 EACH in Sodium Chloride 0.9% 100 ML IVPB SCH (23:00)
[2020-12-27 06:13] LABS: #Eosinphils 0.1 thou/uL (0.0-0.7); #Monocytes 0.4 thou/uL (0.11-0.59); %Basophils 0.6 % (0.0-1.0); %Eosinophils 1.1 % (0.0-10.0); %Lymphocytes 13.5 % (21.0-51.0); %Neutrophils 79.9 % (42.0-75.0); Hemoglobin 12.3 g/dL (14.0-18.0); Mean Corpuscular HGB CONC 32.7 g/dL (32.0-36.0); Mean Corpuscular Hemoglobin 29.1 pg (27.0-31.0); Mean Corpuscular Volume 88.8 fL (78.0-98.0); Mean Platelet Volume 8.5 fL (7.4-10.4); Platelet Count 120 thou/uL (130-400); RBC Distribution Width 13.3 % (11.5-14.5); Red Blood Cell (RBC) Count 4.22 mill/uL (4.70-6.10); White Blood Cell (WBC) Count 7.5 thou/uL (4.8-10.8)
[2020-12-27 06:33] LABS: Anion Gap 22 mmol/L (10-20); BUN (Urea Nitrogen) 49 mg/dL (8.9-20.6); Calc. Creatinine Clearance 6 mL/min (70-130); Calcium 8.8 mg/dL (7.8-10.44); Carbon Dioxide 21 mmol/L (22-29); Chloride 98 mmol/L (98-107); Glucose 95 mg/dL (70-105); Potassium 4.9 mmol/L (3.5-5.1); Sodium 136 mmol/L (136-145)
[2020-12-27] MEDS ORDERED: Heparin 10,000 UNITS/ 10 ML VIAL ONE (08:41)
[2020-12-27] MEDS ORDERED: Activase 2 MG VIAL CATH SCH ×2 (09:15→10:45)
[2020-12-27] MEDS ORDERED: Sterile Water 10 ML VIAL IVP SCH (09:15)
[2020-12-27] MEDS: Cinacalcet HCl 30 MG TAB PO SCH (10:42)
[2020-12-27] MEDS: Sevelamer Carbonate 800 MG TAB PO SCH ×3 (10:43→20:51)
[2020-12-27] MEDS ORDERED: Cefepime 0.5 GM, Admixture Fee 1 EACH in Sodium Chloride 0.9% 100 ML IVPB SCH (13:00)
[2020-12-28 06:13] LABS: #Eosinphils 0.1 thou/uL (0.0-0.7); #Lymphocytes 1.2 thou/uL (1.20-3.40); #Monocytes 0.4 thou/uL (0.11-0.59); %Basophils 0.8 % (0.0-1.0); %Eosinophils 2.2 % (0.0-10.0); %Lymphocytes 20.4 % (21.0-51.0); %Monocytes 6.9 % (0.0-10.0); %Neutrophils 69.8 % (42.0-75.0); Hemoglobin 11.7 g/dL (14.0-18.0); Mean Corpuscular HGB CONC 32.2 g/dL (32.0-36.0); Mean Corpuscular Hemoglobin 28.8 pg (27.0-31.0); Mean Corpuscular Volume 89.5 fL (78.0-98.0); Mean Platelet Volume 8.7 fL (7.4-10.4); Platelet Count 114 thou/uL (130-400); Red Blood Cell (RBC) Count 4.06 mill/uL (4.70-6.10); White Blood Cell (WBC) Count 5.7 thou/uL (4.8-10.8)
[2020-12-28 06:27] LABS: Anion Gap 23 mmol/L (10-20); BUN (Urea Nitrogen) 61 mg/dL (8.9-20.6); Calc. Creatinine Clearance 5 mL/min (70-130); Carbon Dioxide 19 mmol/L (22-29); Chloride 98 mmol/L (98-107); Potassium 5.1 mmol/L (3.5-5.1); Sodium 135 mmol/L (136-145)
[2020-12-28 06:28] LABS: Calcium 9.4 mg/dL (7.8-10.44); Glucose 92 mg/dL (70-105)
[2020-12-28] MEDS ORDERED: Heparin 10,000 UNITS/ 10 ML VIAL ONE ×2 (08:47→11:37)
[2020-12-28] MEDS: Sevelamer Carbonate 800 MG TAB PO SCH ×2 (08:56→16:39)
[2020-12-28] MEDS: Cinacalcet HCl 30 MG TAB PO SCH (08:56)
[2020-12-28] MEDS ORDERED: Bupivacaine PF 0.5% 30 ML VIAL ONE (11:37)
[2020-12-28] MEDS ORDERED: Sodium Chloride 0.9% 10 ML ONE ×2 (11:37→12:01)
[2020-12-28] MEDS ORDERED: Lidocaine 1% w/Epinephrine 1:100K 20 ML VIAL ONE (11:37)
[2020-12-28] MEDS ORDERED: Fentanyl 100 MCG/2 ML VIAL ONE (11:45)
[2020-12-28] MEDS ORDERED: PROPOFOL 200 MG/20 ML VIAL ONE (11:53)
[2020-12-28] MEDS ORDERED: Ondansetron PF 4 MG/2 ML Vial ONE (11:53)
[2020-12-28] MEDS ORDERED: Lidocaine 1% PF 5 ML VIAL ONE (11:53)
[2020-12-28 20:28] VITALS: BP 101/63; TEMP 98.6
== END 2020-12-28 19:55 | disposition home or self-care (01) | DRG 252 ==
LOC: ERS 07:35 → T4-B 10:06 → OBSVTOIN 12-26 12:32
PROVIDERS: ADMIT Family Medicine; ATTEND Family Medicine
PROC: 05BF0ZZ Excision of Left Cephalic Vein, Open Approach (ICD-10-PCS; principal; 2020-12-25)
PROC: 0JH63XZ Insertion of Tunneled Vascular Access Device into Chest Subcutaneous Tissue and Fascia, Percutaneous Approach (ICD-10-PCS; 2020-12-26)
PROC: 02HV33Z Insertion of Infusion Device into Superior Vena Cava, Percutaneous Approach (ICD-10-PCS; 2020-12-26)
PROC: B518ZZA Fluoroscopy of Superior Vena Cava, Guidance (ICD-10-PCS; 2020-12-26)
PROC: 5A1D70Z Performance of Urinary Filtration, Intermittent, Less than 6 Hours Per Day (ICD-10-PCS; 2020-12-26)
PROC: 0JH63XZ Insertion of Tunneled Vascular Access Device into Chest Subcutaneous Tissue and Fascia, Percutaneous Approach (ICD-10-PCS; 2020-12-28)
PROC: 0JPT3XZ Removal of Tunneled Vascular Access Device from Trunk Subcutaneous Tissue and Fascia, Percutaneous Approach (ICD-10-PCS; 2020-12-28)
PROC: 02PY33Z Removal of Infusion Device from Great Vessel, Percutaneous Approach (ICD-10-PCS; 2020-12-28)
PROC: 02HV33Z Insertion of Infusion Device into Superior Vena Cava, Percutaneous Approach (ICD-10-PCS; 2020-12-28)
PROC: 0JHD3XZ Insertion of Tunneled Vascular Access Device into Right Upper Arm Subcutaneous Tissue and Fascia, Percutaneous Approach (ICD-10-PCS; 2020-12-28)
DX: T82.838A Hemorrhage due to vascular prosthetic devices, implants and grafts, initial encounter (principal); N18.6 End stage renal disease; T82.49XA Other complication of vascular dialysis catheter, initial encounter; I12.0 Hypertensive chronic kidney disease with stage 5 chronic kidney disease or end stage renal disease; R78.81 Bacteremia; T82.7XXA Infection and inflammatory reaction due to other cardiac and vascular devices, implants and grafts, initial encounter; Z20.822 Contact with and (suspected) exposure to COVID-19; Y84.1 Kidney dialysis as the cause of abnormal reaction of the patient, or of later complication, without mention of misadventure at the time of the procedure; E66.9 Obesity, unspecified; B95.7 Other staphylococcus as the cause of diseases classified elsewhere; Y82.8 Other medical devices associated with adverse incidents; D63.1 Anemia in chronic kidney disease; Z99.2 Dependence on renal dialysis; Z88.0 Allergy status to penicillin; Z79.899 Other long term (current) drug therapy; Z68.22 Body mass index [BMI] 22.0-22.9, adult
CPT/HCPCS: 36415; 71045; 80048; 80053; 80202; 83605; 85025; 85610; 85652; 86140; 87040; 87077; 87149; 87186; 88304; 90935; 96365; 96375; 99284; C1752; G0257; G0378; J0692; J1642; J1644; J1956; J2250; J2370; J2405; J2704; J2720; J3010; J3370; J3490; S0020; U0002

== ENCOUNTER 2021-04-03 07:06 | Outpatient (CLI) | payer BC | END 2021-04-03 07:07 | disposition home or self-care (01) | LOC: BICULT 07:06 → ULT 07:07 | PROVIDERS: ATTEND Specialist | DX: N18.6 End stage renal disease (principal); T82.868A Thrombosis due to vascular prosthetic devices, implants and grafts, initial encounter | CPT/HCPCS: 93970 ==

== ENCOUNTER 2021-05-12 14:21 | Outpatient (CLI) | payer BC ==
[2021-05-12 16:19] LABS: #Basophils 0.1 10x3/uL (0.0-0.2); #Eosinphils 0.1 10x3/uL (0.0-0.5); #Monocytes 0.5 10x3/uL (0.0-1.1); #Neutrophils 5.9 10x3/uL (1.5-8.4); %Basophils 0.6 % (0.0-2.0); %Eosinophils 1.5 % (0.0-6.0); %Monocytes 5.5 % (0.0-10.0); Mean Corpuscular HGB CONC 30.4 g/dL (32.0-36.0); Mean Corpuscular Hemoglobin 25.5 pg (27.0-33.0); Mean Corpuscular Volume 83.9 fl (81.2-95.1); Mean Platelet Volume 11.8 fl (7.4-10.4); Platelet Count 186 10x3/uL (150-450); RBC Distribution Width 14.9 % (11.5-14.5); Red Blood Cell (RBC) Count 5.48 10x6/uL (4.32-5.72); White Blood Cell (WBC) Count 8.1 10x3/uL (3.5-10.5)
[2021-05-12 16:22] LABS: Anion Gap 20 mmol/L (10-20); BUN (Urea Nitrogen) 39 mg/dL (8.9-20.6); Calc. Creatinine Clearance 0 mL/min (70-130); Calcium 10.4 mg/dL (7.8-10.44); Carbon Dioxide 26 mmol/L (22-29); Chloride 98 mmol/L (98-107); Glucose 75 mg/dL (70-105); Potassium 4.9 mmol/L (3.5-5.1); Sodium 139 mmol/L (136-145)
[2021-05-13 12:57] LABS: SARS-CoV-2 PCR by NAA Not Detected (NotDetected)
== END 2021-05-12 14:22 | disposition home or self-care (01) ==
LOC: LABBT 14:21
PROVIDERS: ATTEND Specialist
DX: Z01.812 Encounter for preprocedural laboratory examination (principal); S31.109A Unspecified open wound of abdominal wall, unspecified quadrant without penetration into peritoneal cavity, initial encounter; T82.868A Thrombosis due to vascular prosthetic devices, implants and grafts, initial encounter; D17.79 Benign lipomatous neoplasm of other sites; N18.6 End stage renal disease; N50.3 Cyst of epididymis; K57.92 Diverticulitis of intestine, part unspecified, without perforation or abscess without bleeding; C60.9 Malignant neoplasm of penis, unspecified; R37 Sexual dysfunction, unspecified; E55.9 Vitamin D deficiency, unspecified; Z85.49 Personal history of malignant neoplasm of other male genital organs; Z20.822 Contact with and (suspected) exposure to COVID-19
CPT/HCPCS: 80048; 85025; U0003; U0005

== ENCOUNTER 2021-05-17 07:51 | Day surgery (SDC) | payer BC ==
[2021-05-16 11:58] VITALS: BMI 31.0
[2021-05-17] MEDS ORDERED: Levofloxacin 500 mg/D5W 100 ml Premix Bag ONE (08:37)
[2021-05-17] MEDS ORDERED: Acetaminophen 500 MG TAB ONE (08:37)
[2021-05-17] MEDS ORDERED: Midazolam HCl 2 mg/2 ml Vial ONE (09:31)
[2021-05-17] MEDS ORDERED: Fentanyl 100 MCG/2 ML VIAL ONE ×2 (09:31→09:41)
[2021-05-17] MEDS ORDERED: Propofol 1,000 MG/100 ML VIAL IV ONE (09:41)
[2021-05-17] MEDS ORDERED: Ropivacaine 0.5% HCl/PF (150 MG/30 ML VIAL) ONE (09:56)
[2021-05-17] MEDS ORDERED: EPINEPHrine 1 MG/ML AMP ONE (10:05)
[2021-05-17] MEDS ORDERED: Lidocaine 2% PF 5 ML VIAL ONE (10:05)
[2021-05-17] MEDS ORDERED: Protamine Sulfate 50 MG/5 ML VIAL ONE (10:05)
[2021-05-17] MEDS ORDERED: Bupivacaine PF 0.5% 30 ML VIAL ONE (10:05)
[2021-05-17] MEDS ORDERED: Heparin 5,000 UNITS/ML VIAL ONE (10:05)
[2021-05-17] MEDS ORDERED: Lidocaine 1% PF 5 ML VIAL ONE (10:19)
[2021-05-17] MEDS ORDERED: Calcium Chloride 1 GM/10 ML Abboject SYRINGE ONE (10:19)
[2021-05-17] MEDS ORDERED: ePHEDrine 50 MG/ML VIAL ONE (10:19)
[2021-05-17] MEDS ORDERED: PROPOFOL 200 MG/20 ML VIAL ONE (10:19)
[2021-05-17] MEDS ORDERED: Glycopyrrolate 0.2 MG/ML 5 ML SYRINGE ONE (10:19)
[2021-05-17] MEDS ORDERED: PHENYLEPHRINE-NS 100 MCG/ML 10 ML SYRINGE ONE (10:19)
[2021-05-17] MEDS ORDERED: Phenylephrine 10 MG/ML VIAL ONE (11:12)
[2021-05-17] MEDS ORDERED: Heparin 1,000 UNITS/ML VIAL ONE (12:11)
== END 2021-05-17 12:30 | disposition home or self-care (01) ==
LOC: SDC 07:51
PROVIDERS: ATTEND Specialist
PROC: 031B0ZF Bypass Right Radial Artery to Lower Arm Vein, Open Approach (ICD-10-PCS; principal; 2021-05-17)
DX: I12.0 Hypertensive chronic kidney disease with stage 5 chronic kidney disease or end stage renal disease (principal); N18.6 End stage renal disease; T82.898A Other specified complication of vascular prosthetic devices, implants and grafts, initial encounter; R37 Sexual dysfunction, unspecified; E55.9 Vitamin D deficiency, unspecified; N50.3 Cyst of epididymis; Z85.49 Personal history of malignant neoplasm of other male genital organs; Z79.899 Other long term (current) drug therapy; Z88.0 Allergy status to penicillin; Z99.2 Dependence on renal dialysis
CPT/HCPCS: J0171; J1644; J1956; J2001; J2250; J2370; J2704; J2720; J2795; J3010; J3490; S0020

== ENCOUNTER 2024-01-06 12:01 | Inpatient (IN) | payer BC ==
[2024-01-06 12:41] LABS: Hematocrit 39.5 % (42.0-52.0); Hemoglobin 12.9 g/dL (14.0-18.0); Mean Corpuscular HGB CONC 32.7 g/dL (32.0-36.0); Mean Corpuscular Hemoglobin 30.7 pg (27.0-31.0); Mean Platelet Volume 11.8 fL (7.4-10.4); Platelet Count 138 10x3/uL (130-400); RBC Distribution Width 14.7 % (11.5-14.5)
[2024-01-06 12:44] LABS: Troponin I 0.023 ng/mL (< 0.028)
[2024-01-06 12:50] LABS: ALT (SGPT) 7 U/L (8-55); AST (SGOT) 13 U/L (5-34); Albumin 3.8 g/dL (3.5-5.0); Alkaline Phosphatase 129 U/L (40-110); Anion Gap 11 mmol/L (10-20); BUN (Urea Nitrogen) 27 mg/dL (8.9-20.6); Bilirubin, Total 1.6 mg/dL (0.2-1.2); Calc. Creatinine Clearance 0 mL/min (70-130); Calcium 10.5 mg/dL (7.8-10.44); Carbon Dioxide 17 mmol/L (22-29); Chloride 114 mmol/L (98-107); Estimated GFR 42; Globulin 2.5 g/dL (2.4-3.5); Glucose 113 mg/dL (70-105); Potassium 5.7 mmol/L (3.5-5.1); Protein, Total 6.3 g/dL (6.0-8.3); Sodium 136 mmol/L (136-145)
[2024-01-06 13:30] LABS: Band 30 % (5-11); Burr Cells SLIGHT = 2-5 cells HPF (0-1); Eosinophils 1 % (0-10); Large Platelets 5.9 % (0-5); Lymphocytes 2 % (21-51); Metamyelocyte 3 % (0-0); Monocytes 5 % (0-10); Myelocyte 1 % (0-0); Neutrophil 58 % (42-75); Ovalocytes SLIGHT = 2-5 cells HPF (0-1); Platelet Adequacy Comment Platelets Normal; Poikilocytosis SLIGHT = 6-15 cells HPF (0-5); Polychromasia SLIGHT = 2-3 cells HPF (0-2)
[2024-01-06 14:42] LABS: Magnesium 1.5 mg/dL (1.6-2.6)
[2024-01-06] MEDS ORDERED: CALCIUM GLUC 1 GM (50 ML) BAG ONE (15:57)
[2024-01-06] MEDS ORDERED: Albuterol 2.5 MG (0.5 mL) NEB ONE (15:57)
[2024-01-06] MEDS ORDERED: Insulin Regular, Human 100 UNIT/ML 10 ML VIAL ONE (15:59)
[2024-01-06 17:13] LABS: Bacteria/HPF None Seen HPF (None Seen); Bilirubin Negative (Negative); Blood, Urine Negative (Negative); CAUTI Indications for Culture Pelvic or flank pain; Clarity Clear (Clear); Glucose, Urine (Dipstick) Normal (Negative); Ketone, Urine Negative (Negative); Leukocyte Negative Leu/uL (Negative); Nitrite Negative (Negative); Protein, Urine (Dipstick) Negative (Neg-Trace); RBC/HPF 0-3 HPF (0-3); Specific Gravity, Urine 1.013 (1.002-1.036); Squamous Epithelial None Seen HPF (0-3); Urobilinogen Normal mg/dL (Less than 2); WBC/HPF 0-3 HPF (0-3); pH, Urine 5.5 (5.0-9.0)
[2024-01-06 17:15] LABS: Actual Bicarbonate (HCO3v) 16.1 mEq/L (22-28); Base Excess -10.4 mEq/L (-2.0 to +3.0); Calcium, Ionized (venous) 1.37 mmol/L (1.16-1.32); Chloride (VBG) 107 mmol/L (98-106); Hematocrit-VBG 39 % (42.0-52.0); Hemoglobin (Hb) 13.3 g/dL (13.1-17.2); Sodium 134 mmol/L (133-146); pH (venous) 7.246 (7.32-7.43)
[2024-01-06] MEDS ORDERED: Dextrose 10% in Water 250 ML ONE (17:27)
[2024-01-06 17:28] LABS: Urine Culture Reflex No No
[2024-01-06] MEDS ORDERED: Sodium Bicarb 50 mEq/50 ML VIAL ONE (17:49)
[2024-01-06] MEDS ORDERED: Acetaminophen 325 MG TAB PO PRN (18:57)
[2024-01-06] MEDS ORDERED: Ondansetron PF 4 MG/2 ML Vial IVP PRN (18:57)
[2024-01-06] MEDS: Dextrose 50% Abboject 50 ML SYRINGE SLOW IVP SCH (22:13)
[2024-01-06] MEDS: LOKELMA 5 GM PACKET PO SCH (22:16)
[2024-01-06] MEDS: Heparin 5,000 UNITS/ML VIAL SC SCH (22:37)
[2024-01-06] MEDS: Magnesium 2 GM/50 ML(in water) 2 GM in Premix 1 BAG IVPB SCH (22:57)
[2024-01-06 23:57] VITALS: BMI 31.6
[2024-01-07 05:44] LABS: Hematocrit 38.1 % (42.0-52.0); Hemoglobin 12.3 g/dL (14.0-18.0); Mean Corpuscular HGB CONC 32.3 g/dL (32.0-36.0); Mean Corpuscular Hemoglobin 29.7 pg (27.0-31.0); Mean Platelet Volume 12.2 fL (7.4-10.4); Platelet Count 125 10x3/uL (130-400); RBC Distribution Width 14.5 % (11.5-14.5); Red Blood Cell (RBC) Count 4.14 mill/uL (4.70-6.10)
[2024-01-07 06:17] LABS: Band 22 % (5-11); Burr Cells SLIGHT = 2-5 cells HPF (0-1); Eosinophils 4 % (0-10); Lymphocytes 8 % (21-51); Metamyelocyte 1 % (0-0); Monocytes 4 % (0-10); Myelocyte 2 % (0-0); Neutrophil 59 % (42-75); Platelet Adequacy Comment Platelets Normal; Smudge Cells 1.9 %
[2024-01-07 06:23] LABS: Anion Gap 12 mmol/L (10-20); BUN (Urea Nitrogen) 24 mg/dL (8.9-20.6); Calc. Creatinine Clearance 58 mL/min (70-130); Calcium 9.8 mg/dL (7.8-10.44); Carbon Dioxide 17 mmol/L (22-29); Chloride 113 mmol/L (98-107); Estimated GFR 46; Glucose 89 mg/dL (70-105); Magnesium 1.8 mg/dL (1.6-2.6); Potassium 4.9 mmol/L (3.5-5.1); Sodium 137 mmol/L (136-145)
[2024-01-07 12:25] VITALS: BP 133/77; TEMP 98.1
[2024-01-08 08:36] LABS: Potassium (VBG) 6.41 mmol/L (3.70-5.30)
== END 2024-01-07 14:29 | disposition home or self-care (01) | DRG 641 ==
LOC: ERS 12:01 → 2SW 17:36
PROVIDERS: ADMIT Internal Medicine; ATTEND Emergency Medicine
DX: E87.5 Hyperkalemia (principal); Z94.0 Kidney transplant status; R00.1 Bradycardia, unspecified; E83.42 Hypomagnesemia; I10 Essential (primary) hypertension; N40.0 Benign prostatic hyperplasia without lower urinary tract symptoms; Z79.899 Other long term (current) drug therapy; Z88.0 Allergy status to penicillin; Z88.8 Allergy status to other drugs, medicaments and biological substances
CPT/HCPCS: 36415; 36416; 71045; 80048; 80053; 80197; 81001; 82805; 83735; 83880; 84484; 85025; 93005; 93010; 93306; 96361; 96365; 96375; J0613; J1644; J1815; J3475; J7611; J7999